=== PATIENT | female | born 1985 | race American Indian/Alaskan Native ===

== ENCOUNTER → 2021-05-05 12:04 | Outpatient (CLI) | payer OTHER, SELFPAY ==
[2021-05-05 13:46] LABS: Add Manual Diff / Slide Review NO; Basophils Absolute Auto 0 /uL (0-100); Basophils Percent Auto 0.4 % (0-2); Eosinophils Absolute Auto 0 /uL (0-450); Eosinophils Percent Auto 0.3 % (2-4); Hematocrit 42.5 % (36-46); Hemoglobin 14.4 g/dL (12.0-16.0); Lymphocytes Absolute Auto 2000 /uL (1100-4500); Lymphocytes Percent Auto 22.3 % (25-40); Mean Corpuscular HGB Conc 33.9 % (30-36); Mean Corpuscular Hemoglobin 26.6 PG (26-34); Mean Corpuscular Volume 78.5 fL (80-100); Monocytes Absolute Auto 400 /uL (0-900); Neutrophils Absolute Auto 6600 /uL (1500-7000); Platelet Count 351 X10^3/uL (150-400); Red Blood Cell Count 5.41 X10^6/uL (4.0-5.2); Red Cell Distribution Width 13.4 % (11.6-14.8); White Blood Cell Count 9.1 X10^3/uL (4.5-11.0)
[2021-05-05 13:58] LABS: Alanine Aminotransferase 13 IU/L (<35); Albumin 4.7 g/dL (3.5-5.0); Albumin Globulin Ratio 1.5 (1.0-2.8); Alkaline Phosphatase 84 U/L (38-126); Aspartate Aminotransferase 18 IU/L (14-36); BUN Creatinine Ratio 12.5 (6-22); Bilirubin Total 1.2 mg/dL (0.2-1.3); Blood Urea Nitrogen 10 mg/dL (7-17); Calcium 9.8 mg/dL (8.4-10.2); Carbon Dioxide 30 mmol/L (22-32); Chloride 102 mmol/L (98-107); Cholesterol 188 mg/dL (140-199); Estimated Glomerular Filt Rate > 60.0 mL/min (>60); Globulin 3.2 g/dL (1.7-4.1); Glucose 99 mg/dL (70-100); HDL Cholesterol 51 mg/dL (40-60); HEMOLYSIS < 15 (0-50); LDL Cholesterol Calculated 113 mg/dL (<100); Lipase 37 U/L (23-300); Potassium 4.6 mmol/L (3.4-5.1); Sodium 138 mmol/L (137-145); Total Protein 7.9 g/dL (6.3-8.2); Triglycerides 120 mg/dL (35-150)
[2021-05-05 14:28] LABS: Thyroid Stimulating Hormone 1.33 uIU/mL (0.47-4.68)
== END ==
PROVIDERS: Family Provider Physician Assistant; PCP Physician Assistant; Referring Provider Family Medicine; Visit Provider Family Medicine
DX: R07.9 Chest pain, unspecified (principal); E78.5 Hyperlipidemia, unspecified
CPT/HCPCS: 36415; 80053; 80061; 83690; 84443; 85025

== ENCOUNTER 2021-09-15 19:24 | Emergency (ER) | payer OTHER, SELFPAY ==
[2021-09-15 19:35] VITALS: BP 146/84; PULSE 102; RESP 16; TEMP 37.8; O2SAT 95; BMI 38.2
--- NOTE | 2021-09-15 19:54 | ED.ABDPAIN ---
HPI - Abdominal Pain General Chief Complaint: Abdominal Pain Stated Complaint: Really sharp pain in the stomach feels hot Time Seen by Provider: 09/15/21 19:54 Mode of arrival: Ambulatory History of Present Illness HPI narrative: 36-year-old female nonsmoker with noncontributory medical history presents with a chief complaint of gradually worsening central, lower abdominal pain over the past 24 hours or so. She has had fever and chills and nausea but no vomiting. Her pain seems to be worse with motion and improves with rest. She denies any radiation of the pain. She denies any diarrhea or constipation. She denies classic dysuria, frequency or urgency. Related Data Home Medications Medication Instructions Recorded Confirmed ALBUTEROL SULFATE (Ventolin / 2 puff INH Q4H PRN #0 02/06/07 Proventil) TRIAMCINOLONE NASAL INHALER 2 puff INH #0 02/06/07 (NASACORT) famotidine 20 mg tablet #0 12/29/11 hydrocodone 5 mg-acetaminophen 300 #0 12/29/11 mg tablet (Vicodin) lorazepam 0.5 mg tablet #0 12/29/11 Previous Rx's Medication Instructions Recorded cephalexin 500 mg capsule 500 mg PO BID #10 cap 09/15/21 ketorolac 10 mg tablet 10 mg PO Q6H PRN #14 tab 09/15/21 ondansetron 4 mg disintegrating 4 mg PO TID-QID PRN #10 tab 09/15/21 tablet Allergies Allergy/AdvReac Type Severity Reaction Status Date / Time lidocaine [LIDOCAINE] Allergy Mild Verified 09/15/21 21:24 Review of Systems Review of Systems Narrative: GENERAL: See HPI HEENT: Denies sinus pain, ear pain, sore throat, difficulty swallowing, dizziness. RESPIRATORY: Denies dyspnea, cough, wheezing, hemoptysis, sputum. CARDIOVASCULAR: Denies chest pain, palpitations, orthopnea, edema, GASTROINTESTINAL: See HPI : See HPI MUSCULOSKELETAL: denies weakness, joint pain, or bony pain SKIN: Denies rash, skin lesions, or other NEUROLOGIC: Denies weakness, headache, numbness, change in speech, confusion, seizures, incoordination. PSYCHIATRIC: No concerning psychosocial issues. 12 point review of systems is negative except for those stated above Patient History Social History Smoking Status: Never smoker Smoking Status: Never smoker alcohol intake frequency: 0-2 drinks per day Substance Use Type: does not use Exam Narrative Exam Narrative: GENERAL: [28 year old patient appears stated age. Well-developed patient, in mild distress. HEAD: Atraumatic. Normocephalic. EYES: Pupils equal round and reactive. Extraocular motions intact. No scleral icterus. No injection or drainage. ENT: Nose without bleeding, purulent drainage. Throat without erythema, tonsillar hypertrophy or exudate. Airway patent. NECK: Trachea midline. Non tender CARDIOVASCULAR: Regular rate and rhythm without murmurs, gallops, or rubs. RESPIRATORY: Clear to auscultation. Breath sounds equal bilaterally. No wheezes, rales, or rhonchi. GASTROINTESTINAL: Abdomen soft, mild periumbilical and suprapubic tenderness nondistended. EXTREMITIES: No edema or joint tenderness. BACK: Nontender without deformity or crepitance. No flank tenderness. NEURO: AOx3. SKIN: No rash or erythema of visible areas Initial Vital Signs Initial Vital Signs: Vital Signs Temperature 100.1 F H 09/15/21 19:35 Pulse Rate 102 H 09/15/21 19:35 Respiratory Rate 16 09/15/21 19:35 Blood Pressure 146/84 H 09/15/21 19:35 Pulse Oximetry 95 09/15/21 19:35 Course Orders Ordered: ED Orders 09/15/21 19:44 EKG-12 Lead Stat 09/15/21 19:50 Complete Blood Count AUTO DIFF Stat Comprehensive Metabolic Panel Stat Lipase Stat Urine Culture Stat Urine Microscopic Stat 09/15/21 19:52 COVID19 -Nasal RAPID/Pre-Proc Stat 09/15/21 19:58 CT abdomen pelvis w con Stat Discontinued Medications Hydrocodone Bitart/Acetaminophen (Hydrocodone/Acet 5/325 Prepack) 1 bottle MISC SEEINSTR ONE Stop: 09/15/21 21:16 Last Admin: 09/15/21 21:39 Dose: 1 bottle Documented by: JOE Cefazolin Sodium (Cephalexin 250 Mg Prepack) 1 bottle MISC SEEINSTR ONE Stop: 09/15/21 21:16 Last Admin: 09/15/21 21:38 Dose: 500 mg Documented by: JOE Sodium Chloride (Normal Saline 0.9%) 1,000 mls @ 1,000 mls/hr IV BOLUS ONE Stop: 09/15/21 20:57 Last Infusion: 09/15/21 21:40 Dose: 0 mls/hr Documented by: Admin: 09/15/21 20:23 Dose: 1,000 mls/hr Documented by: JOE Ondansetron HCl (Ondansetron 4 Mg Odt Prepack) 1 bottle MISC SEEINSTR ONE Stop: 09/15/21 21:16 Last Admin: 09/15/21 21:39 Dose: 1 bottle Documented by: JOE Vital Signs Vital signs: Vital Signs - 8 hr 09/15/21 20:34 09/15/21 21:00 09/15/21 21:30 Pulse Rate 86 85 78 Respiratory Rate 20 Blood Pressure Pulse Oximetry 93 92 93 09/15/21 21:35 Pulse Rate 79 Respiratory Rate Blood Pressure 137/82 Pulse Oximetry 93 MDM - Abdominal Pain Lab Data Result diagrams: 09/15/21 19:50 09/15/21 19:50 Labs: Lab Results 09/15/21 09/15/21 09/15/21 Range/Units 19:50 19:50 19:50 WBC 9.4 (4.5-11.0) X10^3/uL RBC 5.05 (4.0-5.2) X10^6/uL Hgb 13.4 (12.0-16.0) g/dL Hct 40.1 (36-46) % MCV 79.5 L (80-100) fL MCH 26.6 (26-34) PG MCHC 33.4 (30-36) % RDW 13.7 (11.6-14.8) % Plt Count 294 (150-400) X10^3/uL Neut % (Auto) 81.7 H (50-75) % Lymph % (Auto) 12.2 L (25-40) % [place] % (Auto) 5.4 (3-14) % Eos % (Auto) 0.3 L (2-4) % Baso % (Auto) 0.4 (0-2) % Neut # (Auto) 7700 H (8766-2452) /uL Lymph # (Auto) 1100 (2593-4644) /uL [place] # (Auto) 500 (0-900) /uL Eos # (Auto) 0 (0-450) /uL Baso # (Auto) 0 (0-100) /uL Sodium 137 (137-145) mmol/L Potassium 3.9 (3.4-5.1) mmol/L Chloride 103 (98-107) mmol/L Carbon Dioxide 25 (22-32) mmol/L BUN 12 (7-17) mg/dL Creatinine 0.75 (0.52-1.04) mg/dL Estimated GFR > 60 (>60) mL/min BUN/Creatinine Ratio 16.0 (6-22) Glucose 103 H (70-100) mg/dL Calcium 8.4 (8.4-10.2) mg/dL Total Bilirubin 0.8 (0.2-1.3) mg/dL AST 24 (14-36) IU/L ALT 23 (<35) IU/L Alkaline Phosphatase 81 (38-126) U/L Total Protein 7.9 (6.3-8.2) g/dL Albumin 4.4 (3.5-5.0) g/dL Globulin 3.5 (1.7-4.1) g/dL Albumin/Globulin Ratio 1.3 (1.0-2.8) Lipase 42 (23-300) U/L Urine RBC 5-10/hpf H (0-5/HPF) Urine WBC 10-30/hpf H (0-5/HPF) Ur Squamous Epith Cells 10-30 /hpf H (0-5/HPF) Urine Bacteria Few (2-10) H (None) Ur Culture Indicated? Culture not indicate SARS-CoV-2 (PCR) (Negative) 09/15/21 Range/Units 19:52 WBC (4.5-11.0) X10^3/uL RBC (4.0-5.2) X10^6/uL Hgb (12.0-16.0) g/dL Hct (36-46) % MCV (80-100) fL MCH (26-34) PG MCHC (30-36) % RDW (11.6-14.8) % Plt Count (150-400) X10^3/uL Neut % (Auto) (50-75) % Lymph % (Auto) (25-40) % [place] % (Auto) (3-14) % Eos % (Auto) (2-4) % Baso % (Auto) (0-2) % Neut # (Auto) (3447-7553) /uL Lymph # (Auto) (1696-1017) /uL [place] # (Auto) (0-900) /uL Eos # (Auto) (0-450) /uL Baso # (Auto) (0-100) /uL Sodium (137-145) mmol/L Potassium (3.4-5.1) mmol/L Chloride (98-107) mmol/L Carbon Dioxide (22-32) mmol/L BUN (7-17) mg/dL Creatinine (0.52-1.04) mg/dL Estimated GFR (>60) mL/min BUN/Creatinine Ratio (6-22) Glucose (70-100) mg/dL Calcium (8.4-10.2) mg/dL Total Bilirubin (0.2-1.3) mg/dL AST (14-36) IU/L ALT (<35) IU/L Alkaline Phosphatase (38-126) U/L Total Protein (6.3-8.2) g/dL Albumin (3.5-5.0) g/dL Globulin (1.7-4.1) g/dL Albumin/Globulin Ratio (1.0-2.8) Lipase (23-300) U/L Urine RBC (0-5/HPF) Urine WBC (0-5/HPF) Ur Squamous Epith Cells (0-5/HPF) Urine Bacteria (None) Ur Culture Indicated? SARS-CoV-2 (PCR) Negative (Negative) Point of care testing: Point of Care Testing Test Results Negative Urine Dip Bedside Urine Glucose Negative Bedside Urine Bilirubin - Negative Bedside Urine Ketone - Negative Urine Specific [place] 1.025 Bedside Urine Occult Blood - Negative Bedside Urine pH 6.0 Bedside Urine Protein - Negative Bedside Urine Urobilinogen - Negative Bedside Urine Nitrite - Negative Bedside Urine Leukocytes + [address] scan - abdomen/pelvis: Radiologist's Impression: Close Abdomen/Pelvis CT (Signed) Barrington Gutierrez - 09/15/21 Launch?[address] [address] [address] Scan Report Signed Patient: Daria Mendosa MR#: [id number] : 1985 Acct:[id number] Age/Sex: 36 / F Date of Service: 09/15/21 Loc: ED Accession Number: [id number] ?? Procedure: CT abdomen pelvis w con Ordering Provider: Luke Gill D.O. PROCEDURE:? CT ABDOMEN PELVIS W CON ? INDICATIONS:? severe mid abdomen pain, N/V/D, fever ? TECHNIQUE:? After the administration of IV contrast, axial sections were acquired from the lung bases to the pubic symphysis.? Coronal and sagittal reformats were performed.? For radiation dose reduction, the following was used:? automated exposure control, adjustment of mA and/or kV according to patient size. ? COMPARISON:? [facility], CT, ABDOMEN/PELVIS WITH CONTRAST, 12/29/2011, 22:42. ? FINDINGS:? Image quality:? Excellent.? ? Lung bases:? Unremarkable.? ? Heart:? Heart is normal in size. ? ? ABDOMEN: Liver:? No mass lesion. Gallbladder:? Surgically absent.? Biliary ducts:? No biliary ductal dilatation.? ? Pancreas:? No evidence of acute pancreatitis.? ? Spleen:? Normal in size.? ? Adrenal Glands:? No adrenal nodules.? ? Kidneys and Ureters:? No hydronephrosis.? A focus of cortical thinning is redemonstrated in the right kidney. ? ? Stomach and Bowel:? Stomach, small bowel loops, and colon are normal in caliber and wall thickness.? No pericecal inflammatory changes to suggest appendicitis.? There is colonic diverticulosis without acute diverticulitis. Peritoneum:? There is a small amount of intraperitoneal free fluid in the pelvis which appears within physiologic limits.? No free air.? ? Ventral Wall: ? No hernia.? Abdominal Nodes:? No retroperitoneal or mesenteric adenopathy by size criteria.? Vessels:? Aorta and inferior vena cava are normal in size.? ? PELVIS: Pelvic Organs:? An IUD appears in appropriate position within the uterus.? ? Bladder:? Unremarkable.? ? Pelvic Nodes: No enlarged lymph nodes.? Miscellaneous: No inguinal hernias are seen. ? ? ? Bones:? Visualized osseous structures demonstrate no suspicious focal lesions. ? IMPRESSION:? ? 1. No definite acute intra-abdominal abnormality. ? 2. Colonic diverticulosis without acute diverticulitis. ? 3. Small amount of free fluid in the pelvis appears within physiologic limits.? ? Dictated by: Barrington Gutierrez M.D. on 09/15/2021 at 20:56 ? ? MDM Narrative Medical decision making narrative: Multiple etiologies for patient's symptoms considered include, but not limited to: [Bowel obstruction versus appendicitis versus UTI versus other Patient's symptoms improved over duration of stay with above-stated therapies. History, physical exam, labs, imaging, and response to therapies have been reassuring. Findings and discharge diagnosis discussed with patient/family followed by verbalization of understanding Return precautions discussed with patient/family whom verbalize understanding. Pain has been well controlled and patient is tolerating oral hydration. Discharge Plan Departure Patient Disposition: Home Clinical Impression: Abdominal pain UTI (urinary tract infection) Qualifiers: Urinary tract infection type: acute cystitis Hematuria presence: with hematuria Qualified Code(s): N30.01 - Acute cystitis with hematuria Instructions: DI for Urinary Tract Infection (UTI) Activity Restrictions/Additional Instructions: *You have been diagnosed with [abdominal pain, most likely due to urine infection. As we discussed your history and physical exam are reassuring and labs are unremarkable. Your CT scan shows no sign of bowel obstruction, kidney stone, appendicitis or other diagnosis that would require a an immediate or surgical intervention *What to do: *Please continue to take your regular medications as directed. [ x] New medication prescriptions sent to your pharmacy: [[facility] ] [ ] New medication written as a paper prescription [ ] No new medications given *Please follow up with your primary care provider in 2-3 days, call for an appointment. Let them know you were seen in the Emergency Department and that we ask that you be seen in follow up. We will electronically transmit a record of today's note if your PCP is in our system *If you do not have a primary care provider please contact the [facility] Resource line at [phone]. They will ask some questions about your medical history and help get you set up with a doctor in the community. *Return to Emergency Department if you should have any new, worsening or concerning symptoms, such as [fever greater than 101 F, shaking chills, worsening pain, persistent vomiting or other bothersome symptoms] Prescriptions: New ketorolac 10 mg tablet 10 mg PO Q6H PRN (Reason: pain) Qty: 14 0RF cephalexin 500 mg capsule 500 mg PO BID Qty: 10 0RF ondansetron 4 mg tablet,disintegrating 4 mg PO TID-QID PRN (Reason: nausea and vomiting) Qty: 10 0RF No Action ALBUTEROL SULFATE (Ventolin / Proventil) 2 puff INH Q4H PRN Qty: 0 0RF TRIAMCINOLONE NASAL INHALER (NASACORT) 2 puff INH Qty: 0 0RF lorazepam 0.5 MG tablet Qty: 0 0RF hydrocodone-acetaminophen [Vicodin] 5 MG/300 MG tablet Qty: 0 0RF famotidine 20 MG tablet Qty: 0 0RF Referrals: Adrienne Yap PA-C [Primary Care Provider] - Visit Report Forms: Patient Portal/API
--- NOTE | 2021-09-15 19:58 | DI.CT.S_ITS ---
PROCEDURE: CT ABDOMEN PELVIS W CON INDICATIONS: severe mid abdomen pain, N/V/D, fever TECHNIQUE: After the administration of IV contrast, axial sections were acquired from the lung bases to the pubic symphysis. Coronal and sagittal reformats were performed. For radiation dose reduction, the following was used: automated exposure control, adjustment of mA and/or kV according to patient size. COMPARISON: [facility], CT, ABDOMEN/PELVIS WITH CONTRAST, 12/29/2011, 22:42. FINDINGS: Image quality: Excellent. Lung bases: Unremarkable. Heart: Heart is normal in size. ABDOMEN: Liver: No mass lesion. Gallbladder: Surgically absent. Biliary ducts: No biliary ductal dilatation. Pancreas: No evidence of acute pancreatitis. Spleen: Normal in size. Adrenal Glands: No adrenal nodules. Kidneys and Ureters: No hydronephrosis. A focus of cortical thinning is redemonstrated in the right kidney. Stomach and Bowel: Stomach, small bowel loops, and colon are normal in caliber and wall thickness. No pericecal inflammatory changes to suggest appendicitis. There is colonic diverticulosis without acute diverticulitis. Peritoneum: There is a small amount of intraperitoneal free fluid in the pelvis which appears within physiologic limits. No free air. Ventral Wall: No hernia. Abdominal Nodes: No retroperitoneal or mesenteric adenopathy by size criteria. Vessels: Aorta and inferior vena cava are normal in size. PELVIS: Pelvic Organs: An IUD appears in appropriate position within the uterus. Bladder: Unremarkable. Pelvic Nodes: No enlarged lymph nodes. Miscellaneous: No inguinal hernias are seen. Bones: Visualized osseous structures demonstrate no suspicious focal lesions. IMPRESSION: 1. No definite acute intra-abdominal abnormality. 2. Colonic diverticulosis without acute diverticulitis. 3. Small amount of free fluid in the pelvis appears within physiologic limits. Dictated by: Barrington Gutierrez M.D. on 09/15/2021 at 20:56 Approved by: Barrington Gutierrez M.D. on 09/15/2021 at 21:00
[2021-09-15 20:06] LABS: Add Manual Diff / Slide Review NO; Basophils Absolute Auto 0 /uL (0-100); Basophils Percent Auto 0.4 % (0-2); Eosinophils Absolute Auto 0 /uL (0-450); Eosinophils Percent Auto 0.3 % (2-4); Hematocrit 40.1 % (36-46); Hemoglobin 13.4 g/dL (12.0-16.0); Lymphocytes Absolute Auto 1100 /uL (1100-4500); Lymphocytes Percent Auto 12.2 % (25-40); Mean Corpuscular HGB Conc 33.4 % (30-36); Mean Corpuscular Hemoglobin 26.6 PG (26-34); Mean Corpuscular Volume 79.5 fL (80-100); Monocytes Absolute Auto 500 /uL (0-900); Monocytes Percent Auto 5.4 % (3-14); Neutrophils Absolute Auto 7700 /uL (1500-7000); Neutrophils Percent Auto 81.7 % (50-75); Platelet Count 294 X10^3/uL (150-400); Red Blood Cell Count 5.05 X10^6/uL (4.0-5.2); Red Cell Distribution Width 13.7 % (11.6-14.8); White Blood Cell Count 9.4 X10^3/uL (4.5-11.0)
[2021-09-15 20:19] LABS: COVID19 -Nasal RAPID Negative (Negative)
[2021-09-15] MEDS: SODIUM CHLORIDE 0.9% 1,000 ML 1000 ML IV (20:23)
[2021-09-15 20:34] VITALS: PULSE 86; O2SAT 93
[2021-09-15 20:36] LABS: Alanine Aminotransferase 23 IU/L (<35); Albumin 4.4 g/dL (3.5-5.0); Albumin Globulin Ratio 1.3 (1.0-2.8); Alkaline Phosphatase 81 U/L (38-126); Aspartate Aminotransferase 24 IU/L (14-36); Bilirubin Total 0.8 mg/dL (0.2-1.3); Blood Urea Nitrogen 12 mg/dL (7-17); Calcium 8.4 mg/dL (8.4-10.2); Carbon Dioxide 25 mmol/L (22-32); Chloride 103 mmol/L (98-107); Estimated Glomerular Filt Rate > 60 mL/min (>60); Globulin 3.5 g/dL (1.7-4.1); Glucose 103 mg/dL (70-100); HEMOLYSIS < 15 (0-50); Lipase 42 U/L (23-300); Potassium 3.9 mmol/L (3.4-5.1); Sodium 137 mmol/L (137-145); Total Protein 7.9 g/dL (6.3-8.2)
[2021-09-15 20:44] LABS: Bacteria Urine Few (2-10); RBC Urine 5-10/HPF (0-5/HPF); Squamous Epithelial Cell Urine 10-30 /HPF (0-5/HPF); WBC Urine 10-30/HPF (0-5/HPF)
[2021-09-15 21:00] VITALS: PULSE 85; RESP 20; O2SAT 92
[2021-09-15 21:30] VITALS: PULSE 78; O2SAT 93
[2021-09-15 21:35] VITALS: BP 137/82; PULSE 79; O2SAT 93
[2021-09-15] MEDS: cephALEXin 250 MG PREPACK 1 BOTTLE MISC (21:38)
[2021-09-15] MEDS: ONDANSETRON 4 MG ODT PREPACK 1 BOTTLE MISC (21:39)
[2021-09-15] MEDS: HYDROCODONE/ACET 5/325 PREPACK 1 BOTTLE MISC (21:39)
== END 2021-09-15 21:46 | disposition home or self-care (01) ==
PROVIDERS: Emergency Provider Emergency Medicine; Family Provider Physician Assistant; PCP Physician Assistant
DX: N30.01 Acute cystitis with hematuria (principal); R10.30 Lower abdominal pain, unspecified; Z20.822 Contact with and (suspected) exposure to COVID-19
CPT/HCPCS: 74177; 80053; 81003; 81015; 81025; 83690; 85025; 87086; 87635; 99284; C9803; Q9967

== ENCOUNTER 2021-09-17 19:34 | Emergency (ER) | payer OTHER, SELFPAY ==
[2021-09-17] VITALS (12 sets, daily range): BP systolic 130–157; BP diastolic 76–97; PULSE 56–81; RESP 14–27; TEMP 36.4; O2SAT 98–100
--- NOTE | 2021-09-17 20:26 | ED.CHESTPAIN ---
HPI - Chest Pain General Chief Complaint: Chest Pain Stated Complaint: CHEST PAIN LEFT SIDE ARM NUMBNESS AND LIPS Time Seen by Provider: 09/17/21 20:14 Source: patient Mode of arrival: Ambulatory History of Present Illness HPI narrative: 36-year-old female nonsmoker with noncontributory medical history presents with a chief complaint of a relatively sudden onset left lateral neck, anterior and posterior shoulder pain that started while at rest when she was sitting in bed 1-2 hours prior to her arrival. She denies chest pain or shortness of breath. She denies any obvious provocation, palliation of her symptoms. She states that she had some tingling down her left arm and sharp pain on the backside of her left elbow which is not necessarily new for her but perhaps in a different location. She states she is quite nervous about her symptoms, she has had pain in her neck for many years and suffered an injury while cheerleading. She has a family member that is a doctor that told her she should probably be seen. She was here a few days ago a chief complaint of central and lower abdominal pain and had extensive workup including labs and a CT scan of her abdomen and pelvis which were largely unremarkable except urine suggesting infection. She has been taking medications as directed. She denies recent travel, history of blood clot or use of hormone therapy but does have an IUD Related Data Home Medications Medication Instructions Recorded Confirmed ALBUTEROL SULFATE (Ventolin / 2 puff INH Q4H PRN #0 02/06/07 Proventil) TRIAMCINOLONE NASAL INHALER 2 puff INH #0 02/06/07 (NASACORT) famotidine 20 mg tablet #0 12/29/11 hydrocodone 5 mg-acetaminophen 300 #0 12/29/11 mg tablet (Vicodin) lorazepam 0.5 mg tablet #0 12/29/11 Previous Rx's Medication Instructions Recorded cephalexin 500 mg capsule 500 mg PO BID #10 cap 09/15/21 ketorolac 10 mg tablet 10 mg PO Q6H PRN #14 tab 09/15/21 ondansetron 4 mg disintegrating 4 mg PO TID-QID PRN #10 tab 09/15/21 tablet pantoprazole 40 mg tablet,delayed 40 mg PO DAILY #30 tab 09/17/21 release (Protonix) Allergies Allergy/AdvReac Type Severity Reaction Status Date / Time lidocaine [LIDOCAINE] Allergy Mild Verified 09/15/21 21:24 Review of Systems Review of Systems Narrative: GENERAL: Denies chills, fatigue, malaise, fever, sweats. HEENT: Denies sinus pain, ear pain, sore throat, difficulty swallowing, dizziness. RESPIRATORY: Denies dyspnea, cough, wheezing, hemoptysis, sputum. CARDIOVASCULAR: See HPI GASTROINTESTINAL: Denies nausea, vomiting, abdominal pain, diarrhea, constipation, melena. : Denies dysuria, frequency, incontinence, hematuria, urinary retention. MUSCULOSKELETAL: See HPI SKIN: Denies rash, skin lesions, or other NEUROLOGIC: Denies weakness, headache, numbness, change in speech, confusion, seizures, incoordination. PSYCHIATRIC: No concerning psychosocial issues. 12 point review of systems is negative except for those stated above Patient History Social History Smoking Status: Never smoker Smoking Status: Never smoker alcohol intake frequency: 0-2 drinks per day Substance Use Type: does not use Exam Narrative Exam Narrative: GENERAL: 36[] year old patient appears stated age. Well-developed patient, in mild distress. HEAD: Atraumatic. Normocephalic. EYES: Pupils equal round and reactive. Extraocular motions intact. No scleral icterus. No injection or drainage. ENT: Nose without bleeding, purulent drainage. Throat without erythema, tonsillar hypertrophy or exudate. Airway patent. NECK: Trachea midline. Non tender, full range of motion, no change with axial load. Left upper extremity with no ongoing numbness or tingling, full strength is present, cap refill intact CARDIOVASCULAR: Regular rate and rhythm without murmurs, gallops, or rubs. RESPIRATORY: Clear to auscultation. Breath sounds equal bilaterally. No wheezes, rales, or rhonchi. GASTROINTESTINAL: Abdomen soft, non-tender, nondistended. EXTREMITIES: No edema or joint tenderness. BACK: Nontender without deformity or crepitance. No flank tenderness. NEURO: AOx3. SKIN: No rash or erythema of visible areas Initial Vital Signs Initial Vital Signs: Vital Signs Temperature 97.6 F 09/17/21 19:43 Pulse Rate 81 09/17/21 19:43 Respiratory Rate 22 09/17/21 19:43 Blood Pressure 135/92 H 09/17/21 19:43 Pulse Oximetry 99 06/08/22 19:43 Course Orders Ordered: ED Orders 09/17/21 20:00 Complete Blood Count AUTO DIFF Stat Comprehensive Metabolic Panel Stat D Dimer Stat Lipase Stat NT-proBNP (BNP-Adult 18+) Stat Procalcitonin Stat Troponin & CK Cardiac Panel Stat 09/17/21 20:33 XR chest 1V Stat EKG-12 Lead Stat 09/17/21 21:08 CT angio chest PE protocol Stat 09/17/21 22:45 Troponin & CK Cardiac Panel Stat Sodium Chloride (Normal Saline 0.9%) 1,000 mls @ 150 mls/hr IV CONT THOMAS Last Admin: 09/17/21 20:45 Dose: 150 mls/hr Documented by: KENTRELLHOLUPILLO Discontinued Medications Ketorolac Tromethamine (Ketorolac 30 Mg/Ml Vial) 15 mg IV NOW ONE Stop: 09/17/21 22:27 Last Admin: 09/17/21 22:36 Dose: 15 mg Documented by: OSBALDO Vital Signs Vital signs: Vital Signs - 8 hr 09/17/21 19:43 Temperature 97.6 F Pulse Rate 81 Respiratory Rate 22 Blood Pressure 135/92 H Pulse Oximetry 99 MDM - Chest Pain Lab Data Result diagrams: 09/17/21 20:00 09/17/21 20:00 Labs: Lab Results 09/17/21 09/17/21 09/17/21 Range/Units 20:00 20:00 20:00 WBC 9.0 (4.5-11.0) X10^3/uL RBC 5.26 H (4.0-5.2) X10^6/uL Hgb 14.2 (12.0-16.0) g/dL Hct 41.1 (36-46) % MCV 78.1 L (80-100) fL MCH 26.9 (26-34) PG MCHC 34.5 (30-36) % RDW 13.3 (11.6-14.8) % Plt Count 302 (150-400) X10^3/uL Neut % (Auto) 64.9 (50-75) % Lymph % (Auto) 26.1 (25-40) % [place] % (Auto) 7.2 (3-14) % Eos % (Auto) 1.4 L (2-4) % Baso % (Auto) 0.4 (0-2) % Neut # (Auto) 5900 (9395-9662) /uL Lymph # (Auto) 2400 (7412-7643) /uL [place] # (Auto) 600 (0-900) /uL Eos # (Auto) 100 (0-450) /uL Baso # (Auto) 0 (0-100) /uL D-Dimer 327 H (<230) ng/mL Sodium 139 (137-145) mmol/L Potassium 4.0 (3.4-5.1) mmol/L Chloride 103 (98-107) mmol/L Carbon Dioxide 29 (22-32) mmol/L BUN 11 (7-17) mg/dL Creatinine 0.84 (0.52-1.04) mg/dL Estimated GFR > 60 (>60) mL/min BUN/Creatinine Ratio 13.1 (6-22) Glucose 98 (70-100) mg/dL Calcium 9.3 (8.4-10.2) mg/dL Total Bilirubin 0.6 (0.2-1.3) mg/dL AST 28 (14-36) IU/L ALT 20 (<35) IU/L Alkaline Phosphatase 85 (38-126) U/L Total Creatine Kinase 62 (30-135) U/L CK-MB (CK-2) TNP CK-MB (CK-2) Rel Index TNP Troponin I < 0.012 (0.01-0.034) ng/mL NT-Pro-B Natriuret Pep 42 (<125) pg/mL Total Protein 8.2 (6.3-8.2) g/dL Albumin 4.6 (3.5-5.0) g/dL Globulin 3.6 (1.7-4.1) g/dL Albumin/Globulin Ratio 1.3 (1.0-2.8) Lipase 35 (23-300) U/L Procalcitonin 0.09 (<0.5) ng/mL 09/17/21 Range/Units 22:45 WBC (4.5-11.0) X10^3/uL RBC (4.0-5.2) X10^6/uL Hgb (12.0-16.0) g/dL Hct (36-46) % MCV (80-100) fL MCH (26-34) PG MCHC (30-36) % RDW (11.6-14.8) % Plt Count (150-400) X10^3/uL Neut % (Auto) (50-75) % Lymph % (Auto) (25-40) % [place] % (Auto) (3-14) % Eos % (Auto) (2-4) % Baso % (Auto) (0-2) % Neut # (Auto) (5977-7411) /uL Lymph # (Auto) (9482-8385) /uL [place] # (Auto) (0-900) /uL Eos # (Auto) (0-450) /uL Baso # (Auto) (0-100) /uL D-Dimer (<230) ng/mL Sodium (137-145) mmol/L Potassium (3.4-5.1) mmol/L Chloride (98-107) mmol/L Carbon Dioxide (22-32) mmol/L BUN (7-17) mg/dL Creatinine (0.52-1.04) mg/dL Estimated GFR (>60) mL/min BUN/Creatinine Ratio (6-22) Glucose (70-100) mg/dL Calcium (8.4-10.2) mg/dL Total Bilirubin (0.2-1.3) mg/dL AST (14-36) IU/L ALT (<35) IU/L Alkaline Phosphatase (38-126) U/L Total Creatine Kinase 57 (30-135) U/L CK-MB (CK-2) TNP CK-MB (CK-2) Rel Index TNP Troponin I < 0.012 (0.01-0.034) ng/mL NT-Pro-B Natriuret Pep (<125) pg/mL Total Protein (6.3-8.2) g/dL Albumin (3.5-5.0) g/dL Globulin (1.7-4.1) g/dL Albumin/Globulin Ratio (1.0-2.8) Lipase (23-300) U/L Procalcitonin (<0.5) ng/mL Imaging Data CT scan - chest: Radiologist's Impression: Launch?[address] [address] [address] Scan Report Signed Patient: Daria Mendosa MR#: [id number] : 1985 Acct:[id number] Age/Sex: 36 / F Date of Service: 09/17/21 Loc: ED Accession Number: [id number] ?? Procedure: CT angio chest PE protocol Ordering Provider: Luke Gill D.O. PROCEDURE:? CT ANGIO CHEST PE PROTOCOL ? INDICATIONS:? chest pain, radiation to back, elevated Dimer ? TECHNIQUE:? After the administration of intravenous contrast, 2 mm thick sections acquired from the pulmonary apices to the posterior costophrenic angles.? 3-dimensional maximum intensity projection (MIP) coronal and sagittal reformats were then acquired through the thorax.? For radiation dose reduction, the following was used:? automated exposure control, adjustment of mA and/or kV according to patient size.? ? COMPARISON:? [facility], CR, XR CHEST 1V, 09/17/2021, 20:39. ? FINDINGS:? Image quality:? Excellent.? ? Pulmonary arteries:? Pulmonary arteries are normal in size, and demonstrate no intraluminal filling defects to suggest central pulmonary embolism.? ? Lungs and pleura:? There is mild dependent atelectasis.? No pleural effusions or pneumothorax.? Central and peripheral airways are patent.? ? Mediastinum:? Heart size is normal, without pericardial effusion.? No mediastinal or hilar adenopathy.? Thoracic aorta is normal in caliber and enhancement.? Esophagus is normal in caliber, without hiatal hernia.? ? Bones and chest wall:? No suspicious bony lesions.? Ribs and thoracic spine appear intact throughout.? Visualized thyroid demonstrates no discrete nodules.? No axillary or supraclavicular adenopathy.? ? Abdomen:? Visualized upper abdominal solid organs appear normal in the early arterial phase of enhancement.? ? IMPRESSION:? ? 1. No evidence of pulmonary embolism. ? 2. No acute airspace consolidation.? ? ? Dictated by: Barrington Gutierrez M.D. on 09/17/2021 at 21:59 ?? MDM Narrative Medical decision making narrative: Multiple etiologies for patient's symptoms considered including: [Cardiac ischemia versus pulmonary embolism versus other Multiple causes of chest pain considered including MT, PE, pneumothorax, pneumonia, aortic dissection, and pleurisy. Patient reports no radiation, no diaphoresis, no provocation with exertion, and no vomiting Patient's symptoms improved over duration of stay with above-stated therapies. Findings and discharge diagnosis discussed with patient/family followed by verbalization of understanding Return precautions discussed with patient/family whom verbalize understanding. Discharge Plan Departure Patient Disposition: Home Clinical Impression: Atypical chest pain, Gastroesophageal reflux disease Instructions: DI for Atypical Chest Pain Activity Restrictions/Additional Instructions: *You have been diagnosed with [left chest and shoulder pain without evidence of cardiac disease. As we discussed your history and physical exam as well as labs and imaging would suggest against the likelihood heart attack, blood clot *What to do: *Please continue to take your regular medications as directed. [x ] New medication prescriptions sent to your pharmacy: [[facility] ] *Please follow up with your primary care provider tomorrow as planned. *Please consider a clear liquid diet for the next 24-48 hours and then slowly advance to regular as tolerated. Also, try to avoid alcohol, nicotine, caffeine, spicy, acidic or fatty foods as this may worsen your symptoms *If you do not have a primary care provider please contact the [facility] Resource line at [phone]. They will ask some questions about your medical history and help get you set up with a doctor in the community. *Return to Emergency Department if you should have any new, worsening or concerning symptoms, such as [fever greater than 101 F, shaking chills, worsening pain, persistent vomiting or other bothersome symptoms] Prescriptions: New pantoprazole [Protonix] 40 mg tablet,delayed release (DR/EC) 40 mg PO DAILY Qty: 30 0RF No Action ALBUTEROL SULFATE (Ventolin / Proventil) 2 puff INH Q4H PRN Qty: 0 0RF TRIAMCINOLONE NASAL INHALER (NASACORT) 2 puff INH Qty: 0 0RF lorazepam 0.5 MG tablet Qty: 0 0RF hydrocodone-acetaminophen [Vicodin] 5 MG/300 MG tablet Qty: 0 0RF famotidine 20 MG tablet Qty: 0 0RF ketorolac 10 mg tablet 10 mg PO Q6H PRN (Reason: pain) Qty: 14 0RF cephalexin 500 mg capsule 500 mg PO BID Qty: 10 0RF ondansetron 4 mg tablet,disintegrating 4 mg PO TID-QID PRN (Reason: nausea and vomiting) Qty: 10 0RF Referrals: Adrienne Yap PA-C [Primary Care Provider] -
--- NOTE | 2021-09-17 20:33 | DI.RAD.S_ITS ---
PROCEDURE: XR CHEST 1V INDICATIONS: chest pain TECHNIQUE: One view of the chest was acquired. COMPARISON: [facility], , CHEST 1 VIEW, 10/15/2011, 16:45. FINDINGS: Surgical changes and devices: None. Lungs and pleura: Lungs are clear. No pleural effusions or pneumothorax. Mediastinum: Mediastinal contours appear normal. Heart size is normal. Bones and chest wall: No suspicious bony lesions. Overlying soft tissues appear unremarkable. IMPRESSION: 1. No acute cardiopulmonary disease. Dictated by: Barrington Gutierrez M.D. on 09/17/2021 at 21:25 Approved by: Barrington Gutierrez M.D. on 09/17/2021 at 21:26
[2021-09-17] MEDS: SODIUM CHLORIDE 0.9% 1,000 ML 150 ML IV (20:45)
[2021-09-17 21:00] LABS: Add Manual Diff / Slide Review NO; Basophils Absolute Auto 0 /uL (0-100); Basophils Percent Auto 0.4 % (0-2); Eosinophils Absolute Auto 100 /uL (0-450); Eosinophils Percent Auto 1.4 % (2-4); Hematocrit 41.1 % (36-46); Hemoglobin 14.2 g/dL (12.0-16.0); Lymphocytes Absolute Auto 2400 /uL (1100-4500); Lymphocytes Percent Auto 26.1 % (25-40); Mean Corpuscular HGB Conc 34.5 % (30-36); Mean Corpuscular Hemoglobin 26.9 PG (26-34); Mean Corpuscular Volume 78.1 fL (80-100); Monocytes Absolute Auto 600 /uL (0-900); Monocytes Percent Auto 7.2 % (3-14); Neutrophils Absolute Auto 5900 /uL (1500-7000); Neutrophils Percent Auto 64.9 % (50-75); Platelet Count 302 X10^3/uL (150-400); Red Blood Cell Count 5.26 X10^6/uL (4.0-5.2); Red Cell Distribution Width 13.3 % (11.6-14.8)
[2021-09-17 21:03] LABS: D Dimer 327 ng/mL (<230)
--- NOTE | 2021-09-17 21:08 | DI.CT.S_ITS ---
PROCEDURE: CT ANGIO CHEST PE PROTOCOL INDICATIONS: chest pain, radiation to back, elevated Dimer TECHNIQUE: After the administration of intravenous contrast, 2 mm thick sections acquired from the pulmonary apices to the posterior costophrenic angles. 3-dimensional maximum intensity projection (MIP) coronal and sagittal reformats were then acquired through the thorax. For radiation dose reduction, the following was used: automated exposure control, adjustment of mA and/or kV according to patient size. COMPARISON: [facility], CR, XR CHEST 1V, 09/17/2021, 20:39. FINDINGS: Image quality: Excellent. Pulmonary arteries: Pulmonary arteries are normal in size, and demonstrate no intraluminal filling defects to suggest central pulmonary embolism. Lungs and pleura: There is mild dependent atelectasis. No pleural effusions or pneumothorax. Central and peripheral airways are patent. Mediastinum: Heart size is normal, without pericardial effusion. No mediastinal or hilar adenopathy. Thoracic aorta is normal in caliber and enhancement. Esophagus is normal in caliber, without hiatal hernia. Bones and chest wall: No suspicious bony lesions. Ribs and thoracic spine appear intact throughout. Visualized thyroid demonstrates no discrete nodules. No axillary or supraclavicular adenopathy. Abdomen: Visualized upper abdominal solid organs appear normal in the early arterial phase of enhancement. IMPRESSION: 1. No evidence of pulmonary embolism. 2. No acute airspace consolidation. Dictated by: Barrington Gutierrez M.D. on 09/17/2021 at 21:59 Approved by: Barrington Gutierrez M.D. on 09/17/2021 at 22:05
[2021-09-17 21:11] LABS: Alanine Aminotransferase 20 IU/L (<35); Albumin 4.6 g/dL (3.5-5.0); Albumin Globulin Ratio 1.3 (1.0-2.8); Alkaline Phosphatase 85 U/L (38-126); Aspartate Aminotransferase 28 IU/L (14-36); BUN Creatinine Ratio 13.1 (6-22); Bilirubin Total 0.6 mg/dL (0.2-1.3); Blood Urea Nitrogen 11 mg/dL (7-17); Calcium 9.3 mg/dL (8.4-10.2); Carbon Dioxide 29 mmol/L (22-32); Chloride 103 mmol/L (98-107); Creatine Kinase 62 U/L (30-135); Estimated Glomerular Filt Rate > 60 mL/min (>60); Globulin 3.6 g/dL (1.7-4.1); Glucose 98 mg/dL (70-100); HEMOLYSIS < 15 (0-50); Lipase 35 U/L (23-300); Sodium 139 mmol/L (137-145); Total Protein 8.2 g/dL (6.3-8.2)
[2021-09-17 21:24] LABS: NT-proBNP (BNP-Adult 18+) 42 pg/mL (<125); Troponin I < 0.012 ng/mL (0.01-0.034)
[2021-09-17 21:28] LABS: Procalcitonin 0.09 ng/mL (<0.5)
[2021-09-17] MEDS: KETOROLAC 30 MG/ML VIAL 15 MG IV (22:36)
[2021-09-17 23:01] LABS: Creatine Kinase 57 U/L (30-135)
[2021-09-17 23:14] LABS: Troponin I < 0.012 ng/mL (0.01-0.034)
== END 2021-09-17 23:49 | disposition home or self-care (01) ==
PROVIDERS: Emergency Provider Emergency Medicine; Family Provider Physician Assistant; PCP Physician Assistant
DX: R07.89 Other chest pain (principal); K21.9 Gastro-esophageal reflux disease without esophagitis
CPT/HCPCS: 36415; 71045; 71275; 80053; 82550; 82553; 83690; 83880; 84145; 84484; 85025; 85379; 93005; 93010; 96374; 99284; J1885; Q9967

== ENCOUNTER → 2021-09-27 09:53 | Outpatient (CLI) | payer OTHER, SELFPAY ==
[2021-09-29 13:38] LABS: Interpretation Negative (Negative)
== END ==
PROVIDERS: Family Provider Physician Assistant; PCP Physician Assistant; Referring Provider Physician Assistant; Visit Provider Physician Assistant
DX: R10.13 Epigastric pain (principal); K21.9 Gastro-esophageal reflux disease without esophagitis
CPT/HCPCS: 83013

== ENCOUNTER 2022-08-25 21:06 | Emergency (ER) | payer OTHER, SELFPAY ==
[2022-08-25 21:07] VITALS: BP 182/88; PULSE 72; RESP 16; TEMP 36.9; O2SAT 98; BMI 38.2
--- NOTE | 2022-08-25 21:17 | ED_ITS ---
HPI - General Adult General Chief complaint: Ear Stated complaint: L ear pain Time Seen by Provider: 08/25/22 21:17 Source: patient Mode of arrival: Ambulatory History of Present Illness HPI narrative: 37-year-old female nonsmoker with history of GERD and relatively recent diagnosis of left ear infection presents due to some increasing drainage and pain. She started having pain on Wednesday and went to in urgent care on Wednesday was diagnosed with otitis externa and placed on a prescription of ciprofloxacin with steroid drops as well as oral antibiotics. She is had some purulent drainage and pain anterior to her ear which has seemed to improve and wanted to be checked. She denies fever or chills. She is not dizzy nor weak or lightheaded. She denies chest pain or shortness of breath. She denies neck pain, throat pain, difficulty swallowing or difficulty breathing. Related Data Home Medications Medication Instructions Recorded Confirmed ALBUTEROL SULFATE (Ventolin / 2 puff INH Q4H PRN ##0 02/06/07 Proventil) TRIAMCINOLONE NASAL INHALER 2 puff INH ##0 02/06/07 (NASACORT) famotidine 20 mg tablet ##0 12/29/11 hydrocodone 5 mg-acetaminophen 300 ##0 12/29/11 mg tablet (Vicodin) lorazepam 0.5 mg tablet ##0 12/29/11 Previous Rx's Medication Instructions Recorded cephalexin 500 mg capsule 500 mg PO BID #10 caps 09/15/21 ketorolac 10 mg tablet 10 mg PO Q6H PRN pain #14 tabs 09/15/21 ondansetron 4 mg disintegrating 4 mg PO TID-QID PRN nausea and 09/15/21 tablet vomiting #10 tabs pantoprazole 40 mg tablet,delayed 40 mg PO DAILY #30 tabs 09/17/21 release (Protonix) ciprofloxacin HCl 500 mg tablet 500 mg PO BID #20 tabs 08/25/22 Allergies Allergy/AdvReac Type Severity Reaction Status Date / Time lidocaine [LIDOCAINE] Allergy Mild Verified 09/15/21 21:24 Review of Systems Review of Systems Narrative: GENERAL: Denies chills, fatigue, malaise, fever, sweats. HEENT: see HPI RESPIRATORY: Denies dyspnea, cough, wheezing, hemoptysis, sputum. CARDIOVASCULAR: Denies chest pain, palpitations, orthopnea, edema, GASTROINTESTINAL: Denies nausea, vomiting, abdominal pain, diarrhea, constipation, melena. : Denies dysuria, frequency, incontinence, hematuria, urinary retention. MUSCULOSKELETAL: denies weakness, joint pain, or bony pain SKIN: Denies rash, skin lesions, or other NEUROLOGIC: Denies weakness, headache, numbness, change in speech, confusion, seizures, incoordination. PSYCHIATRIC: No concerning psychosocial issues. 12 point review of systems is negative except for those stated above Patient History Social History Smoking Status: Never smoker Smoking Status: Never smoker alcohol intake frequency: a few times a month Substance Use Type: marijuana Exam Narrative Exam Narrative: GENERAL: [37] year old patient appears stated age. Well-developed patient, in mild distress. HEAD: Atraumatic. Normocephalic. EYES: Pupils equal round and reactive. Extraocular motions intact. No scleral icterus. No injection or drainage. ENT: Nose without bleeding, purulent drainage. Throat without erythema, tonsillar hypertrophy or exudate. Airway patent.Right tympanic membrane is flat, clear with normal landmarks, left external auditory canal is edematous with purulent drainage and debris, unable to visualize the tympanic membrane. There is some tenderness but very minimal swelling, possibly adenopathy in the preauricular region, minimal if any pain over mastoid air cells, no bogginess, surrounding erythema NECK: Trachea midline. Non tender CARDIOVASCULAR: Regular rate and rhythm without murmurs, gallops, or rubs. RESPIRATORY: Clear to auscultation. Breath sounds equal bilaterally. No wheezes, rales, or rhonchi. GASTROINTESTINAL: Abdomen soft, non-tender, nondistended. EXTREMITIES: No edema or joint tenderness. BACK: Nontender without deformity or crepitance. No flank tenderness. NEURO: AOx3. SKIN: No rash or erythema of visible areas Initial Vital Signs Initial Vital Signs: Vital Signs Temperature 98.4 F 08/25/22 21:07 Pulse Rate 72 08/25/22 21:07 Respiratory Rate 16 08/25/22 21:07 Blood Pressure 182/88 H 08/25/22 21:07 Pulse Oximetry 98 08/25/22 21:07 Oxygen Delivery Method Room Air 08/25/22 21:07 Course Orders Ordered: ED Orders 08/25/22 21:31 CT mastoid temporal Stat Discontinued Medications Ciprofloxacin (Ciprofloxacin 250 Mg Tablet) 500 mg PO NOW ONE Stop: 08/25/22 23:53 Last Admin: 08/25/22 23:59 Dose: 500 mg Documented By: Vital Signs Vital signs: Vital Signs - 8 hr 08/25/22 21:07 08/25/22 23:07 08/26/22 00:00 Temperature 98.4 F Pulse Rate 72 70 56 L Respiratory Rate 16 20 Blood Pressure 182/88 H Blood Pressure [Left Arm] 118/70 176/84 H Pulse Oximetry 98 100 99 Oxygen Delivery Method Room Air Room Air Room Air Medical Decision Making MDM Narrative Medical decision making narrative: [37] year old patient presents with left ear pain and drainage for 4 days Multiple etiologies for patient's symptoms considered including, but not limited to: [Otitis externa versus otitis media versus mastoiditis versus other] Prior Charts reviewed in our EMR Primary Historian: patient Imaging reviewed: Mastoiditis Patient encouraged to stop her current oral antibiotic and switch to Cipro. She shows no signs of sepsis, pain is well controlled, she is tolerating orals and at this time there is no indication for hospitalization. She is encouraged to follow closely with Ear Nose and Throat Findings and discharge diagnosis discussed with patient/family followed by verbalization of understanding Return precautions discussed with patient/family whom verbalize understanding of diagnosis and plan Discharge Plan Departure Patient Disposition: Home Clinical Impression: Otitis externa, Acute mastoiditis Instructions: DI for Otitis Externa, DI for Mastoiditis-Adult Activity Restrictions/Additional Instructions: *You have been diagnosed with [ Left otitis externa. As we discussed your history and physical exam is reassuring, CT scan showed no significant abnormal findings and the antibiotics that your on are appropriate.] *What to do: *Please continue to take your regular medications as directed. [x ] New medication prescriptions sent to your pharmacy: [[facility] ] [ ] New medication written as a paper prescription [ ] No new medications given *Please follow up with your primary care provider in 2-3 days, call for an appointment. Let them know you were seen in the Emergency Department and that we ask that you be seen in follow up. We will electronically transmit a record of today's note if your PCP is in our system As we discussed I have included contact information for Dr. Yung of [facility], please call the office tomorrow, let them know you were in the emergency department and we would like you seen in follow-up. *Return to Emergency Department if you should have any new, worsening or c oncerning symptoms, such as [fever greater than 101 F, shaking chills, worsening pain, persistent vomiting or other bothersome symptoms] Prescriptions: New ciprofloxacin HCl 500 mg tablet 500 mg PO BID Qty: 20 0RF No Action ALBUTEROL SULFATE (Ventolin / Proventil) 2 puff INH Q4H PRN Qty: 0 TRIAMCINOLONE NASAL INHALER (NASACORT) 2 puff INH Qty: 0 lorazepam 0.5 MG tablet Qty: 0 hydrocodone-acetaminophen [Vicodin] 5 MG/300 MG tablet Qty: 0 famotidine 20 MG tablet Qty: 0 pantoprazole [Protonix] 40 mg tablet,delayed release (DR/EC) 40 mg PO DAILY Qty: 30 0RF ketorolac 10 mg tablet 10 mg PO Q6H PRN (Reason: pain) Qty: 14 0RF cephalexin 500 mg capsule 500 mg PO BID Qty: 10 0RF ondansetron 4 mg tablet,disintegrating 4 mg PO TID-QID PRN (Reason: nausea and vomiting) Qty: 10 0RF Referrals: Manuel Yung MD [Physician] - Jesus Alberto Art PA-C [Primary Care Provider] - Stand Alone Forms: Patient Portal/API
--- NOTE | 2022-08-25 21:31 | DI.CT.S_ITS ---
PROCEDURE: CT MASTOID TEMPORAL INDICATIONS: severe L head/ear pain, worse over 4 days COMPARISON: None. TECHNIQUE: Noncontrast 0.6 mm thick axial sections acquired through each temporal bone separately. Coronal images are reformatted. FINDINGS: Image quality: Excellent. RIGHT: External auditory canal: Canal has a normal appearance. Middle ear: The middle ear structures, including the ossicles and tympanic membrane, appear normal. No abnormal fluid or soft tissue density. Inner ear: Inner ear is normally formed and appears unremarkable. Facial nerve appears normal throughout is course. Mastoids: Mastoid air cells are clear. LEFT: External auditory canal: There is extensive opacification of the external auditory canal with effacement of the tympanic membrane. Middle ear: There is diffuse abnormal hyperdense fluid or soft tissue density within the middle ear. The ossicles appear preserved without bony destruction or erosions. As noted above, the tympanic membrane is obscured by adjacent fluid or soft tissue density. Inner ear: Inner ear is normally formed and appears unremarkable. Facial nerve appears normal throughout its course. Mastoids: There is partial fluid opacification of the left mastoid air cells. MISCELLANEOUS: Visualized surrounding bones appear unremarkable. Visualized intracranial structures, including the cerebellopontine angle cisterns, appear normal. The visualized sinuses demonstrate mild mucosal thickening within the ethmoid, maxillary, and sphenoid sinuses. IMPRESSION: 1. Extensive complex fluid or soft tissue density demonstrated within the left external auditory canal and middle ear. No evidence of ossicular destruction or erosions. Findings are nonspecific but likely reflect sequelae of an infectious or inflammatory process. 2. Partial fluid opacification of the left mastoid air cells consistent with mastoiditis. Dictated by: Barrington Gutierrez M.D. on 08/25/2022 at 23:14 Approved by: Barrington Gutierrez M.D. on 08/25/2022 at 23:20
[2022-08-25 23:07] VITALS: BP 118/70; PULSE 70; RESP 20; O2SAT 100
[2022-08-25] MEDS: CIPROFLOXACIN 250 MG TABLET 500 MG PO (23:59)
[2022-08-26] VITALS: BP 176/84; PULSE 56; O2SAT 99
== END 2022-08-26 00:02 | disposition home or self-care (01) ==
PROVIDERS: Emergency Provider Emergency Medicine; Family Provider Physician Assistant; PCP Physician Assistant
DX: H60.92 Unspecified otitis externa, left ear (principal); H70.002 Acute mastoiditis without complications, left ear
CPT/HCPCS: 70480; 99283; 99284

== ENCOUNTER 2022-09-16 21:57 | Emergency (ER) | payer OTHER, SELFPAY ==
[2022-09-16 22:17] VITALS: BP 152/74; PULSE 64; RESP 18; TEMP 36.5; O2SAT 99; BMI 37.3
--- NOTE | 2022-09-16 22:33 | DI.RAD.S_ITS ---
PROCEDURE: XR CHEST 1V INDICATIONS: chest pain TECHNIQUE: One view of the chest was acquired. COMPARISON: [facility], CR, XR CHEST 1V, 09/17/2021, 20:39. FINDINGS: Surgical changes and devices: None. Lungs and pleura: Lungs are clear. No pleural effusions or pneumothorax. Mediastinum: Mediastinal contours appear normal. Heart size is normal. Bones and chest wall: No suspicious bony lesions. Overlying soft tissues appear unremarkable. IMPRESSION: 1. No acute cardiopulmonary disease. Dictated by: Barrington Gutierrez M.D. on 09/16/2022 at 23:58 Approved by: Barrington Gutierrez M.D. on 09/16/2022 at 23:58
[2022-09-16] MEDS: ASPIRIN 81 MG CHEW TAB 324 MG PO (22:51)
[2022-09-16 23:14] VITALS: PULSE 57; RESP 22; O2SAT 100
[2022-09-16 23:16] VITALS: BP 143/74; PULSE 63; RESP 23; O2SAT 100
[2022-09-16 23:28] LABS: Add Manual Diff / Slide Review NO; Basophils Absolute Auto 100 /uL (0-100); Basophils Percent Auto 0.7 % (0-2); Eosinophils Absolute Auto 100 /uL (0-450); Eosinophils Percent Auto 0.8 % (2-4); Hemoglobin 12.3 g/dL (12.0-16.0); Lymphocytes Absolute Auto 3000 /uL (1100-4500); Lymphocytes Percent Auto 27.9 % (25-40); Mean Corpuscular HGB Conc 34.1 % (30-36); Mean Corpuscular Hemoglobin 26.9 PG (26-34); Mean Corpuscular Volume 78.7 fL (80-100); Monocytes Absolute Auto 500 /uL (0-900); Neutrophils Absolute Auto 7000 /uL (1500-7000); Neutrophils Percent Auto 65.6 % (50-75); Platelet Count 311 X10^3/uL (150-400); Red Blood Cell Count 4.57 X10^6/uL (4.0-5.2); Red Cell Distribution Width 13.6 % (11.6-14.8); White Blood Cell Count 10.6 X10^3/uL (4.5-11.0)
[2022-09-16 23:30] VITALS: PULSE 53; RESP 20; O2SAT 99
[2022-09-16 23:31] VITALS: BP 137/63; PULSE 54; RESP 22; O2SAT 99
[2022-09-16 23:33] LABS: INR 1.1 (0.9-1.3); Prothrombin Time 12.8 SECONDS (10.1-12.7)
[2022-09-16 23:36] LABS: PTT Partial Thromboplastin Tim 37 SECONDS (26-36)
[2022-09-16 23:38] LABS: Alanine Aminotransferase 24 IU/L (<35); Albumin 4.2 g/dL (3.5-5.0); Albumin Globulin Ratio 1.4 (1.0-2.8); Alkaline Phosphatase 79 U/L (38-126); Aspartate Aminotransferase 22 IU/L (14-36); BUN Creatinine Ratio 13.3 (6-22); Blood Urea Nitrogen 10 mg/dL (7-17); Calcium 8.6 mg/dL (8.4-10.2); Carbon Dioxide 27 mmol/L (22-32); Chloride 102 mmol/L (98-107); Creatine Kinase 96 U/L (30-135); Estimated Glomerular Filt Rate > 60 mL/min (>60); Globulin 2.9 g/dL (1.7-4.1); Glucose 96 mg/dL (70-100); HEMOLYSIS < 15 (0-50); Lipase 38 U/L (23-300); Magnesium 2.1 mg/dL (1.6-2.3); Potassium 3.8 mmol/L (3.4-5.1); Sodium 137 mmol/L (137-145); Total Protein 7.1 g/dL (6.3-8.2)
[2022-09-16 23:49] LABS: Troponin I < 0.012 ng/mL (0.01-0.034)
[2022-09-17] VITALS (10 sets, daily range): BP systolic 147–156; BP diastolic 62–79; PULSE 51–67; RESP 16–34; O2SAT 96–100
--- NOTE | 2022-09-17 00:42 | ED_ITS ---
HPI - Chest Pain General Chief Complaint: Chest Pain Stated Complaint: chest, neck pains, swelling Time Seen by Provider: 09/17/22 00:42 Source: patient Mode of arrival: Ambulatory Limitations: no limitations History of Present Illness HPI narrative: This is a 37-year-old female with history of mild asthma, GERD, patient presents with complaint of left-sided chest pain in her shoulder next down her arm. Patient states she is had similar symptoms on and off in the past. She was here a year ago with similar symptoms. Patient states symptoms started last have been intermittent she was seen at [facility] on Wednesday had aspirin, nitro really had Toradol and Tylenol and was discharged home. She states she is had 5 episodes this year. This 1 has lasted a little bit longer than typical. She states usually it is 1 or 2 days and then resolves. She is felt more tired no fevers no chills no cold cough or congestion. She describes left-sided chest pain radiating down her arm neck she had some numbness and tingling sensation. Her hands both felt a little bit swollen. No shortness of breath. No cough. No change in location of her pain. Patient states her ear infection and mastoid area has been improving. Patient has not had any exacerbation or alleviating symptoms. Patient had ibuprofen at 5:00 p.m., she is had occasional nausea but no vomiting. No issues with diarrhea no black or bloody stools. No dysuria urgency or frequency. Patient states no prior cholecystectomy, no tonsillectomy. Patient states allergies to lidocaine medications. No tobacco, alcohol, edibles but no other illicit. Family history dad at age 42 from [place], she is an uncle who is had CHF is approximately 60 years old had symptoms for 50 years. No siblings with cardiac issues. She has had a stress test most recently in June. She follows with a primary care and swimming. She did have a CT angio of her chest year ago with no evidence of PE were changes to vasculature at that time. Related Data Home Medications Medication Instructions Recorded Confirmed ALBUTEROL SULFATE (Ventolin / 2 puff INH Q4H PRN ##0 02/06/07 Proventil) TRIAMCINOLONE NASAL INHALER 2 puff INH ##0 02/06/07 (NASACORT) famotidine 20 mg tablet ##0 09/18/12 hydrocodone 5 mg-acetaminophen 300 ##0 12/29/11 mg tablet (Vicodin) lorazepam 0.5 mg tablet ##0 12/29/11 Previous Rx's Medication Instructions Recorded cephalexin 500 mg capsule 500 mg PO BID #10 caps 09/15/21 ketorolac 10 mg tablet 10 mg PO Q6H PRN pain #14 tabs 09/15/21 ondansetron 4 mg disintegrating 4 mg PO TID-QID PRN nausea and 09/15/21 tablet vomiting #10 tabs pantoprazole 40 mg tablet,delayed 40 mg PO DAILY #30 tabs 09/17/21 release (Protonix) ciprofloxacin HCl 500 mg tablet 500 mg PO BID #20 tabs 08/25/22 meloxicam 7.5 mg tablet 7.5 mg PO BID PRN pain #10 tabs 09/17/22 Allergies Allergy/AdvReac Type Severity Reaction Status Date / Time lidocaine [LIDOCAINE] Allergy Mild Verified 09/15/21 21:24 Review of Systems Review of Systems ROS Unobtainable: All systems reviewed & are unremarkable except as noted in HPI and below Patient History Social History Smoking Status: Never smoker Smoking Status: Never smoker alcohol intake frequency: a few times a month Substance Use Type: marijuana Exam Narrative Exam Narrative: GENERAL: Alert and oriented x three, female in mild distress. HEENT: Head normocephalic, atraumatic, EOMI, pupils reactive, face symmetric, moist mucous membranes, no tenderness over the left mastoid. No submandibular lymphadenopathy., no cervical vertebral tenderness. NECK: Supple, full range of motion CARDIOVASCULAR: Regular rate and rhythm without murmurs, rubs or gallops. No JVD. No swelling bilateral lower extremities. RESPIRATORY: Breath sounds equal bilaterally, no wheezes rales or rhonchi. No reproducible chest pain. ABDOMEN: Soft, nontender. Normoactive bowel sounds all 4 quadrants. No guarding or rebound, rigidity, no mass : No CVA tenderness EXTREMITIES: Normal range of motion, no clubbing or edema. Neurovascularly intact. 2+ pulses bilateral upper extremities. NEUROLOGICAL: Cranial nerves II through XII grossly intact. Moving all extremities SKIN: Warm, dry, no petechiae, no rashes or lesions. Initial Vital Signs Initial Vital Signs: Vital Signs Temperature 97.7 F 06/07/23 22:17 Pulse Rate 64 09/16/22 22:17 Respiratory Rate 18 09/16/22 22:17 Blood Pressure 152/74 H 09/16/22 22:17 Pulse Oximetry 99 09/16/22 22:17 Oxygen Delivery Method Room Air 09/16/22 22:17 Scores HEART Score Heart Score history: Moderately Suspicious Heart Score EKG: Normal Heart Score Age: < 45 years old Heart Score risk factors: 1-2 risk factors Heart Score troponin: < or = to normal limit Heart Score Total: 2 Course Orders Ordered: ED Orders 09/16/22 22:22 EKG-12 Lead Stat 09/16/22 22:33 XR chest 1V Stat 09/16/22 23:07 Complete Blood Count AUTO DIFF Stat Comprehensive Metabolic Panel Stat Lipase Stat Magnesium Stat PTT Partial Thromboplastin Attila Stat Prothrombin Time INR Stat Troponin & CK Cardiac Panel Stat 09/17/22 01:04 EKG-12 Lead Stat 09/17/22 01:17 Trop I [Troponin I] Stat Discontinued Medications Aspirin (Aspirin 81 Mg Chew Tab) 324 mg PO NOW ONE Stop: 09/16/22 22:33 Last Admin: 09/16/22 22:51 Dose: 324 mg Documented By: JANEL Ketorolac Tromethamine (Ketorolac 30 Mg/Ml Vial) 15 mg IV NOW ONE Stop: 09/17/22 01:05 Last Admin: 09/17/22 01:23 Dose: 15 mg Documented By: JANEL Vital Signs Vital signs: Vital Signs - 8 hr 09/16/22 23:14 09/16/22 23:16 09/16/22 23:16 Pulse Rate 57 L 63 Respiratory Rate 22 23 Blood Pressure 143/74 H Pulse Oximetry 100 100 Oxygen Delivery Method 09/16/22 23:30 09/16/22 23:31 09/16/22 23:31 Pulse Rate 53 L 54 L Respiratory Rate 20 22 Blood Pressure 137/63 Pulse Oximetry 99 99 Oxygen Delivery Method 09/17/22 00:00 09/17/22 00:01 09/17/22 00:01 Pulse Rate 63 57 L Respiratory Rate 24 19 Blood Pressure 156/75 H Pulse Oximetry 100 100 Oxygen Delivery Method 09/17/22 00:30 09/17/22 00:31 09/17/22 00:31 Pulse Rate 52 L 55 L Respiratory Rate 19 21 Blood Pressure 147/79 H Pulse Oximetry 99 99 Oxygen Delivery Method 09/17/22 01:00 09/17/22 01:30 09/17/22 02:00 Pulse Rate 62 65 65 Respiratory Rate 18 29 H 34 H Blood Pressure Pulse Oximetry 99 98 99 Oxygen Delivery Method 09/17/22 02:30 09/17/22 03:00 09/17/22 03:20 Pulse Rate 51 L 67 67 Respiratory Rate 20 23 16 Blood Pressure 147/62 H Pulse Oximetry 96 100 98 Oxygen Delivery Method Room Air MDM - Chest Pain Lab Data 09/16/22 23:07 09/16/22 23:07 Labs: Lab Results 09/16/22 09/16/22 09/16/22 Range/Units 23:07 23:07 23:07 WBC 10.6 (4.5-11.0) X10^3/uL RBC 4.57 (4.0-5.2) X10^6/uL Hgb 12.3 (12.0-16.0) g/dL Hct 36.0 (36-46) % MCV 78.7 L (80-100) fL MCH 26.9 (26-34) PG MCHC 34.1 (30-36) % RDW 13.6 (11.6-14.8) % Plt Count 311 (150-400) X10^3/uL Neut % (Auto) 65.6 (50-75) % Lymph % (Auto) 27.9 (25-40) % [place] % (Auto) 5.0 (3-14) % Eos % (Auto) 0.8 L (2-4) % Baso % (Auto) 0.7 (0-2) % Neut # (Auto) 7000 (7050-2536) /uL Lymph # (Auto) 3000 (8481-0758) /uL [place] # (Auto) 500 (0-900) /uL Eos # (Auto) 100 (0-450) /uL Baso # (Auto) 100 (0-100) /uL PT 12.8 H (10.1-12.7) SECONDS INR 1.1 (0.9-1.3) APTT 37 H (26-36) SECONDS Sodium 137 (137-145) mmol/L Potassium 3.8 (3.4-5.1) mmol/L Chloride 102 (98-107) mmol/L Carbon Dioxide 27 (22-32) mmol/L BUN 10 (7-17) mg/dL Creatinine 0.75 (0.52-1.04) mg/dL Estimated GFR > 60 (>60) mL/min BUN/Creatinine Ratio 13.3 (6-22) Glucose 96 (70-100) mg/dL Calcium 8.6 (8.4-10.2) mg/dL Magnesium 2.1 (1.6-2.3) mg/dL Total Bilirubin 1.0 (0.2-1.3) mg/dL AST 22 (14-36) IU/L ALT 24 (<35) IU/L Alkaline Phosphatase 79 (38-126) U/L Total Creatine Kinase 96 (30-135) U/L CK-MB (CK-2) TNP CK-MB (CK-2) Rel Index TNP Troponin I < 0.012 (0.01-0.034) ng/mL Total Protein 7.1 (6.3-8.2) g/dL Albumin 4.2 (3.5-5.0) g/dL Globulin 2.9 (1.7-4.1) g/dL Albumin/Globulin Ratio 1.4 (1.0-2.8) Lipase 38 (23-300) U/L 09/17/22 Range/Units 01:17 WBC (4.5-11.0) X10^3/uL RBC (4.0-5.2) X10^6/uL Hgb (12.0-16.0) g/dL Hct (36-46) % MCV (80-100) fL MCH (26-34) PG MCHC (30-36) % RDW (11.6-14.8) % Plt Count (150-400) X10^3/uL Neut % (Auto) (50-75) % Lymph % (Auto) (25-40) % [place] % (Auto) (3-14) % Eos % (Auto) (2-4) % Baso % (Auto) (0-2) % Neut # (Auto) (2148-3250) /uL Lymph # (Auto) (0355-3133) /uL [place] # (Auto) (0-900) /uL Eos # (Auto) (0-450) /uL Baso # (Auto) (0-100) /uL PT (10.1-12.7) SECONDS INR (0.9-1.3) APTT (26-36) SECONDS Sodium (137-145) mmol/L Potassium (3.4-5.1) mmol/L Chloride (98-107) mmol/L Carbon Dioxide (22-32) mmol/L BUN (7-17) mg/dL Creatinine (0.52-1.04) mg/dL Estimated GFR (>60) mL/min BUN/Creatinine Ratio (6-22) Glucose (70-100) mg/dL Calcium (8.4-10.2) mg/dL Magnesium (1.6-2.3) mg/dL Total Bilirubin (0.2-1.3) mg/dL AST (14-36) IU/L ALT (<35) IU/L Alkaline Phosphatase (38-126) U/L Total Creatine Kinase (30-135) U/L CK-MB (CK-2) CK-MB (CK-2) Rel Index Troponin I < 0.012 (0.01-0.034) ng/mL Total Protein (6.3-8.2) g/dL Albumin (3.5-5.0) g/dL Globulin (1.7-4.1) g/dL Albumin/Globulin Ratio (1.0-2.8) Lipase (23-300) U/L Imaging Data Chest x-ray: Radiologist's Impression: [address] [address] XRay Report Signed Patient: Daria Mendosa MR#: [id number] : 1985 Acct:[id number] Age/Sex: 37 / F Date of Service: 09/16/22 Loc: ED Accession Number: [id number] ?? Procedure: XR chest 1V Ordering Provider: Catie Yanez D.O. PROCEDURE:? XR CHEST 1V ? INDICATIONS:? chest pain ? TECHNIQUE:? One view of the chest was acquired.? ? COMPARISON:? [facility], CR, XR CHEST 1V, 09/17/2021, 20:39. ? FINDINGS:? ? Surgical changes and devices:? None.? ? Lungs and pleura:? Lungs are clear.? No pleural effusions or pneumothorax.? ? Mediastinum:? Mediastinal contours appear normal.? Heart size is normal.? ? Bones and chest wall:? No suspicious bony lesions.? Overlying soft tissues appear unremarkable.? ? IMPRESSION:? ? 1.? No acute cardiopulmonary disease. ? ? ? Dictated by: Barrington Gutierrez M.D. on 09/16/2022 at 23:58 ? ? Approved by: Barrington Gutierrez M.D. on 09/16/2022 at 23:58?? ECG Data Attestation: I personally reviewed and interpreted this ECG as follows: Prior ECG tracings: available for review Interpretation: Sinus rhythm rate of 60 MT 140 QRS is 78 [address]TC [address]. No acute ST changes appreciated. Patient has prior EKG has similar-appearing segments in 2 3 and AVF. EKG 2. Sinus rhythm, rate of 61 MT 144, QRS is 76 and QTC of 390. No acute ST changes appreciated. Patient appears similar to prior. EKG 2. MDM Narrative Medical decision making narrative: This is a 37-year-old with family history of coronary artery disease dad at age 42 of [place] and an uncle with CHF no siblings. Patient has had some history of asthma and GERD. Patient has had several episodes she states she is had multiple workups for cardiac evaluation, she had workup at [facility] with what sounds like blood work, EKG and troponins. She has had a CT angio in the past year which did not show acute changes. Patient workup today shows no acute EKG changes, negative chest x-ray, CBC CMP, LFTs and troponin is negative. On examination negative Spurling's, no acute neurologic changes. Patient had an infection in her ear recently but is improving examination does not seem to be source of her pain. Patient had ibuprofen at 5:00 p.m. she has had a stress test in the June. Discussed with patient will repeat troponin and EKG if negative. On recheck no dynamic changes from 1st to 2nd EKG. Second troponin is negative. Discussed today's findings with patient. She found the Toradol helpful. Discussed prescription for similar type medication, she would like to avoid any narcotics or opiates. Discharge Plan Departure Patient Disposition: Home Clinical Impression: Atypical chest pain Instructions: DI for Atypical Chest Pain Activity Restrictions/Additional Instructions: Follow-up with your physician for recheck and further testing as needed. You can continue your medications at home as prescribed. You may take Tylenol up to a 1000 mg every 6 hours as needed. You may take meloxicam 1 tablet every 12 hours as needed. This medication is similar to ibuprofen do not take Aleve, naproxen or similar ibuprofen take medications. Prescription sent to [facility]. Please return if you are having new or worsening symptoms, new chest pain, shortness of breath, lightheadedness or passing out, persistent vomiting, new weakness loss of sensation or other new or concerning changes. Prescriptions: New meloxicam 7.5 mg tablet 7.5 mg PO BID PRN (Reason: pain) Qty: 10 0RF No Action ALBUTEROL SULFATE (Ventolin / Proventil) 2 puff INH Q4H PRN Qty: 0 TRIAMCINOLONE NASAL INHALER (NASACORT) 2 puff INH Qty: 0 lorazepam 0.5 MG tablet Qty: 0 hydrocodone-acetaminophen [Vicodin] 5 MG/300 MG tablet Qty: 0 famotidine 20 MG tablet Qty: 0 pantoprazole [Protonix] 40 mg tablet,delayed release (DR/EC) 40 mg PO DAILY Qty: 30 0RF ketorolac 10 mg tablet 10 mg PO Q6H PRN (Reason: pain) Qty: 14 0RF cephalexin 500 mg capsule 500 mg PO BID Qty: 10 0RF ondansetron 4 mg tablet,disintegrating 4 mg PO TID-QID PRN (Reason: nausea and vomiting) Qty: 10 0RF ciprofloxacin HCl 500 mg tablet 500 mg PO BID Qty: 20 0RF Referrals: Jesus Alberto Art PA-C [Primary Care Provider] - Stand Alone Forms: Patient Portal/API
[2022-09-17] MEDS: KETOROLAC 30 MG/ML VIAL 15 MG IV (01:23)
[2022-09-17 01:53] LABS: Troponin I < 0.012 ng/mL (0.01-0.034)
== END 2022-09-17 03:27 | disposition home or self-care (01) ==
PROVIDERS: Emergency Provider Emergency Medicine; Family Provider Physician Assistant; PCP Physician Assistant
DX: R07.89 Other chest pain (principal); M54.2 Cervicalgia; Z82.49 Family history of ischemic heart disease and other diseases of the circulatory system
CPT/HCPCS: 36415; 71045; 80053; 82550; 83690; 83735; 84484; 85025; 85610; 85730; 93005; 93010; 96374; 99284; J1885

== ENCOUNTER 2022-09-18 18:58 | Emergency (ER) | payer OTHER, SELFPAY ==
[2022-09-18 19:02] VITALS: BP 145/89; PULSE 69; RESP 19; TEMP 36.3; O2SAT 98; BMI 37.3
--- NOTE | 2022-09-18 19:02 | DI.RAD.S_ITS ---
PROCEDURE: XR CHEST 1V INDICATIONS: chest pain TECHNIQUE: One view of the chest was acquired. COMPARISON: [facility], CR, XR CHEST 1 VIEW, 09/16/2022, 20:06. [facility], CR, XR CHEST 1 VIEW, 09/11/2022, 23:11. [facility], CR, XR CHEST 1V, 09/16/2022, 22:34. FINDINGS: Surgical changes and devices: None. Lungs and pleura: Lungs are clear. No pleural effusions or pneumothorax. Mediastinum: Mediastinal contours appear normal. Heart size is mildly increased. Bones and chest wall: No suspicious bony lesions. Overlying soft tissues appear unremarkable. IMPRESSION: Mild cardiomegaly. Dictated by: Jefferson Cali M.D. on 09/18/2022 at 19:38 Approved by: Jefferson Cali M.D. on 09/18/2022 at 19:38
[2022-09-18 19:09] VITALS: BP 194/94; PULSE 87; RESP 18; O2SAT 99
--- NOTE | 2022-09-18 19:17 | ED.GENADULT ---
HPI - General Adult General Chief complaint: Dizziness Stated complaint: Chest/Neck pain Time Seen by Provider: 09/18/22 18:59 Source: patient Mode of arrival: Family Vehicle History of Present Illness HPI narrative: 37-year-old woman with a history of reflux and reactive airway disease, hypertension, hyperlipidemia presents complaining of head feeling ?woozy? significant dizziness a ?weird? feeling all day long. She had some minor chest pain earlier today but states that is better. She was seen on August 22 at urgent care with ear pain with otitis media and spontaneous tympanic membrane rupture. She was seen again on September 11 at [facility] for evaluation of chest pain that was midsternal associated with diaphoresis and radiating down the left arm and into her neck. Workup at that time a heart score of 1 with troponins negative x2. Her pain was complicated by anxiety and eventually felt to be more radicular neck pain and improve with Toradol. She was seen on September 17 at this emergency department with similar complaints of chest pain. Workup again was unremarkable in the emergency department with a low heart score and negative troponins x2, she was given a prescription for Naprosyn. She presents today with similar complaints but is noted to be mildly orthostatic. She is had no fevers, cough, chills, palpitation. No vomiting or diarrhea. Related Data Home Medications Medication Instructions Recorded Confirmed ALBUTEROL SULFATE (Ventolin / 2 puff INH Q4H PRN ##0 02/06/07 Proventil) TRIAMCINOLONE NASAL INHALER 2 puff INH ##0 02/06/07 (NASACORT) famotidine 20 mg tablet ##0 12/29/11 hydrocodone 5 mg-acetaminophen 300 ##0 12/29/11 mg tablet (Vicodin) lorazepam 0.5 mg tablet ##0 12/29/11 Previous Rx's Medication Instructions Recorded cephalexin 500 mg capsule 500 mg PO BID #10 caps 09/15/21 ketorolac 10 mg tablet 10 mg PO Q6H PRN pain #14 tabs 09/15/21 ondansetron 4 mg disintegrating 4 mg PO TID-QID PRN nausea and 09/15/21 tablet vomiting #10 tabs pantoprazole 40 mg tablet,delayed 40 mg PO DAILY #30 tabs 09/17/21 release (Protonix) ciprofloxacin HCl 500 mg tablet 500 mg PO BID #20 tabs 08/25/22 meloxicam 7.5 mg tablet 7.5 mg PO BID PRN pain #10 tabs 09/17/22 Allergies Allergy/AdvReac Type Severity Reaction Status Date / Time lidocaine [LIDOCAINE] Allergy Mild Verified 09/18/22 19:02 Review of Systems Review of Systems Narrative: Pertinent positive and negative findings as per HPI Patient History Social History Smoking Status: Never smoker Smoking Status: Never smoker alcohol intake frequency: holidays/special occasions only Substance Use Type: marijuana Exam Initial Vital Signs Initial Vital Signs: Vital Signs Temperature 97.4 F L 09/18/22 19:02 Pulse Rate 69 09/18/22 19:02 Respiratory Rate 19 09/18/22 19:02 Blood Pressure 145/89 H 09/18/22 19:02 Pulse Oximetry 98 09/18/22 19:02 Oxygen Delivery Method Room Air 09/18/22 19:02 General: Healthy appearing, in no acute distress. Able to give a complete and coherent history. Well-nourished well-developed HEENT: Moist mucous membranes, normal sclera with reactive pupils, Neck: No JVD, supple Respiratory: Lungs are clear to auscultation, no wheezing no rales no rhonchi. Full and symmetrical air movement Cardiac: Regular rate and rhythm no murmurs no bruits. Positive for orthostatic hypotension Abdomen: Soft, nontender, good bowel tones, no flank pain Skin: Warm and dry, no rashes Neurologic: Grossly neurologically intact with no obvious asymmetries or abnormalities Extremities: No trauma, well perfused Psych: Cooperative, appropriate insight and affect Course Orders Ordered: ED Orders 09/18/22 19:02 XR chest 1V Stat EKG-12 Lead Stat 09/18/22 19:24 Complete Blood Count AUTO DIFF Stat Comprehensive Metabolic Panel Stat Lipase Stat Magnesium Stat PTT Partial Thromboplastin Attila Stat Prothrombin Time INR Stat Troponin & CK Cardiac Panel Stat 09/18/22 19:37 Urine Microscopic Stat Discontinued Medications Sodium Chloride (Normal Saline 0.9%) 1,000 mls @ 2,000 mls/hr IV BOLUS ONE Stop: 09/18/22 19:45 Last Infusion: 09/18/22 20:35 Dose: 0 mls/hr Documented By: Admin: 09/18/22 19:31 Dose: 2,000 mls/hr Documented By: JORDAN Vital Signs Vital signs: Vital Signs - 8 hr 09/18/22 19:02 09/18/22 19:09 09/18/22 21:06 Temperature 97.4 F L Pulse Rate 69 87 52 L Respiratory Rate 19 18 14 Blood Pressure 145/89 H 194/94 H 146/78 H Pulse Oximetry 98 99 100 Oxygen Delivery Method Room Air Room Air 09/18/22 22:20 Temperature Pulse Rate 53 L Respiratory Rate 14 Blood Pressure 149/90 H Pulse Oximetry 99 Oxygen Delivery Method Room Air Medical Decision Making Lab Data 09/18/22 19:24 09/18/22 19:24 Labs: Lab Results 09/18/22 09/18/22 09/18/22 Range/Units 19:24 19:24 19:24 WBC 11.9 H (4.5-11.0) X10^3/uL RBC 4.83 (4.0-5.2) X10^6/uL Hgb 12.9 (12.0-16.0) g/dL Hct 38.0 (36-46) % MCV 78.6 L (80-100) fL MCH 26.6 (26-34) PG MCHC 33.8 (30-36) % RDW 13.7 (11.6-14.8) % Plt Count 338 (150-400) X10^3/uL Neut % (Auto) 71.5 (50-75) % Lymph % (Auto) 21.5 L (25-40) % [place]ook[place] % (Auto) 5.3 (3-14) % Eos % (Auto) 1.0 L (2-4) % Baso % (Auto) 0.7 (0-2) % Neut # (Auto) 8500 H (5034-0530) /uL Lymph # (Auto) 2600 (8143-6890) /uL Rooks # (Auto) 600 (0-900) /uL Eos # (Auto) 100 (0-450) /uL Baso # (Auto) 100 (0-100) /uL PT 12.6 (10.1-12.7) SECONDS INR 1.1 (0.9-1.3) APTT 35 (26-36) SECONDS Sodium 137 (137-145) mmol/L Potassium 3.8 (3.4-5.1) mmol/L Chloride 104 (98-107) mmol/L Carbon Dioxide 27 (22-32) mmol/L BUN 10 (7-17) mg/dL Creatinine 0.74 (0.52-1.04) mg/dL Estimated GFR > 60 (>60) mL/min BUN/Creatinine Ratio 13.5 (6-22) Glucose 102 H (70-100) mg/dL Calcium 8.9 (8.4-10.2) mg/dL Magnesium 1.9 (1.6-2.3) mg/dL Total Bilirubin 0.7 (0.2-1.3) mg/dL AST 20 (14-36) IU/L ALT 23 (<35) IU/L Alkaline Phosphatase 81 (38-126) U/L Total Creatine Kinase 114 (30-135) U/L CK-MB (CK-2) TNP CK-MB (CK-2) Rel Index TNP Troponin I < 0.012 (0.01-0.034) ng/mL Total Protein 7.3 (6.3-8.2) g/dL Albumin 4.2 (3.5-5.0) g/dL Globulin 3.1 (1.7-4.1) g/dL Albumin/Globulin Ratio 1.4 (1.0-2.8) Lipase 41 (23-300) U/L Urine RBC (0-5/HPF) Urine WBC (0-5/HPF) Ur Squamous Epith Cells (0-5/HPF) Urine Bacteria (None) Ur Culture Indicated? 09/18/22 Range/Units 19:37 WBC (4.5-11.0) X10^3/uL RBC (4.0-5.2) X10^6/uL Hgb (12.0-16.0) g/dL Hct (36-46) % MCV (80-100) fL MCH (26-34) PG MCHC (30-36) % RDW (11.6-14.8) % Plt Count (150-400) X10^3/uL Neut % (Auto) (50-75) % Lymph % (Auto) (25-40) % [place] % (Auto) (3-14) % Eos % (Auto) (2-4) % Baso % (Auto) (0-2) % Neut # (Auto) (1432-5007) /uL Lymph # (Auto) (4628-6424) /uL [place]ooks # (Auto) (0-900) /uL Eos # (Auto) (0-450) /uL Baso # (Auto) (0-100) /uL PT (10.1-12.7) SECONDS INR (0.9-1.3) APTT (26-36) SECONDS Sodium (137-145) mmol/L Potassium (3.4-5.1) mmol/L Chloride (98-107) mmol/L Carbon Dioxide (22-32) mmol/L BUN (7-17) mg/dL Creatinine (0.52-1.04) mg/dL Estimated GFR (>60) mL/min BUN/Creatinine Ratio (6-22) Glucose (70-100) mg/dL Calcium (8.4-10.2) mg/dL Magnesium (1.6-2.3) mg/dL Total Bilirubin (0.2-1.3) mg/dL AST (14-36) IU/L ALT (<35) IU/L Alkaline Phosphatase (38-126) U/L Total Creatine Kinase (30-135) U/L CK-MB (CK-2) CK-MB (CK-2) Rel Index Troponin I (0.01-0.034) ng/mL Total Protein (6.3-8.2) g/dL Albumin (3.5-5.0) g/dL Globulin (1.7-4.1) g/dL Albumin/Globulin Ratio (1.0-2.8) Lipase (23-300) U/L Urine RBC 1-5/hpf (0-5/HPF) Urine WBC None seen (0-5/HPF) Ur Squamous Epith Cells 1-5 /hpf D (0-5/HPF) Urine Bacteria Few (2-10) H (None) Ur Culture Indicated? Cult not indicated Urine Dip Bedside Urine Glucose Negative Bedside Urine Bilirubin - Negative Bedside Urine Ketone - Negative Urine Specific [place] 1.005 Bedside Urine Occult Blood - Negative Bedside Urine pH 7 Bedside Urine Protein - Negative Bedside Urine Urobilinogen - Negative Bedside Urine Nitrite - Negative Bedside Urine Leukocytes - Negative Esterase Point of care testing: Urine Dip Bedside Urine Glucose Negative Bedside Urine Bilirubin - Negative Bedside Urine Ketone - Negative Urine Specific [place] 1.005 Bedside Urine Occult Blood - Negative Bedside Urine pH 7 Bedside Urine Protein - Negative Bedside Urine Urobilinogen - Negative Bedside Urine Nitrite - Negative Bedside Urine Leukocytes - Negative Esterase MDM Narrative Medical decision making narrative: CC: Dizziness when standing up as well as chest pain. This is an acute problem uncertain prognosis Complicating co-morbidities: Medical records indicate a history of generalized anxiety disorder. This is now her 3rd or 4th visit for similar complaints she does have an appointment with Cardiology in 2 weeks. Data collected from: patient, Medical records reviewed: Your notes from [facility] are reviewed prior atypical chest pain note from September 17 at [facility] as reviewed Differential considered: Dehydration, orthostatic hypotension, acute coronary syndrome, cardiomyopathy Exam documented above, pertinent findings include: Lab Test results independently reviewed as above. Pertinent findings: Independently reviewed EKG shows sinus rhythm at a rate of 65. Normal intervals, normal axis, no acute ischemic changes Imaging studies independently reviewed: Chest x-ray shows mild cardiomegaly with no other findings of concern Treatments: IV fluids Re-evaluations: Initial blood pressure sitting 145/79 with a heart rate 65., standing heart rate increases to 85 and blood pressure drops to 114/94 After a L of fluid heart rate is 51 supine 60 standing up. Blood pressure supine is 171/73 and standing is 149/90. Discussion: 37-year-old woman who complains of dizziness and general malaise when she is standing up. She is had 4 visits to emergency and urgent cares over the last 2 weeks with similar complaints and findings area cardiac workup has been unremarkable each time. She does have a follow-up with Cardiology coming up. She states she had been feeling a bit better had a bit of diarrhea yesterday that has now resolved. Significantly orthostatic on arrival and after a L of fluid blood pressure and heart rate are significantly improved and clinically she feels that she is back to her baseline. She is able to drink and has had a full glass of water at this point. At this point there is no evidence of continued diarrhea, continued reasons for dehydration or orthostasis, no acute coronary syndrome, no suggestion of bacterial or viral etiology at this time. Findings reviewed with patient and she is safe for home discharge Discharge Plan Departure Patient Disposition: Home Clinical Impression: Orthostatic hypotension, Acute dehydration, Diarrhea Instructions: DI for Dehydration -- Adult Activity Restrictions/Additional Instructions: Thank you for coming in today I suspect that the diarrhea that you had yesterday caused some mild dehydration which was giving you the symptoms of dizziness when you stand up today. With a L of fluid your symptoms as well as heart rate and blood pressure all significantly improved. Workup today does not suggest heart attack, bacterial infection that would require antibiotics, viral infection or other life-threatening abnormalities that would require further workup or hospitalization today. Please make sure you are drinking plenty of fluids over the course of the next 24 hours. Please make sure you do keep your follow-up appointment with Cardiology If you find that you are getting worse or develop any new symptoms, please feel free to return to the emergency department for further evaluation. Prescriptions: No Action ALBUTEROL SULFATE (Ventolin / Proventil) 2 puff INH Q4H PRN Qty: 0 TRIAMCINOLONE NASAL INHALER (NASACORT) 2 puff INH Qty: 0 lorazepam 0.5 MG tablet Qty: 0 hydrocodone-acetaminophen [Vicodin] 5 MG/300 MG tablet Qty: 0 famotidine 20 MG tablet Qty: 0 pantoprazole [Protonix] 40 mg tablet,delayed release (DR/EC) 40 mg PO DAILY Qty: 30 0RF ketorolac 10 mg tablet 10 mg PO Q6H PRN (Reason: pain) Qty: 14 0RF cephalexin 500 mg capsule 500 mg PO BID Qty: 10 0RF ondansetron 4 mg tablet,disintegrating 4 mg PO TID-QID PRN (Reason: nausea and vomiting) Qty: 10 0RF ciprofloxacin HCl 500 mg tablet 500 mg PO BID Qty: 20 0RF meloxicam 7.5 mg tablet 7.5 mg PO BID PRN (Reason: pain) Qty: 10 0RF Referrals: Jesus Alberto Art PA-C [Primary Care Provider] - Stand Alone Forms: Patient Portal/API
[2022-09-18 19:30] LABS: Add Manual Diff / Slide Review NO; Basophils Absolute Auto 100 /uL (0-100); Basophils Percent Auto 0.7 % (0-2); Eosinophils Absolute Auto 100 /uL (0-450); Hemoglobin 12.9 g/dL (12.0-16.0); Lymphocytes Absolute Auto 2600 /uL (1100-4500); Lymphocytes Percent Auto 21.5 % (25-40); Mean Corpuscular HGB Conc 33.8 % (30-36); Mean Corpuscular Hemoglobin 26.6 PG (26-34); Mean Corpuscular Volume 78.6 fL (80-100); Monocytes Absolute Auto 600 /uL (0-900); Monocytes Percent Auto 5.3 % (3-14); Neutrophils Absolute Auto 8500 /uL (1500-7000); Neutrophils Percent Auto 71.5 % (50-75); Platelet Count 338 X10^3/uL (150-400); Red Blood Cell Count 4.83 X10^6/uL (4.0-5.2); Red Cell Distribution Width 13.7 % (11.6-14.8); White Blood Cell Count 11.9 X10^3/uL (4.5-11.0)
[2022-09-18] MEDS: SODIUM CHLORIDE 0.9% 1,000 ML 2000 ML IV (19:31)
[2022-09-18 19:38] LABS: INR 1.1 (0.9-1.3); Prothrombin Time 12.6 SECONDS (10.1-12.7)
[2022-09-18 19:40] LABS: PTT Partial Thromboplastin Tim 35 SECONDS (26-36)
[2022-09-18 19:43] LABS: Alanine Aminotransferase 23 IU/L (<35); Albumin 4.2 g/dL (3.5-5.0); Albumin Globulin Ratio 1.4 (1.0-2.8); Alkaline Phosphatase 81 U/L (38-126); Aspartate Aminotransferase 20 IU/L (14-36); BUN Creatinine Ratio 13.5 (6-22); Bilirubin Total 0.7 mg/dL (0.2-1.3); Blood Urea Nitrogen 10 mg/dL (7-17); Calcium 8.9 mg/dL (8.4-10.2); Carbon Dioxide 27 mmol/L (22-32); Chloride 104 mmol/L (98-107); Creatine Kinase 114 U/L (30-135); Estimated Glomerular Filt Rate > 60 mL/min (>60); Globulin 3.1 g/dL (1.7-4.1); Glucose 102 mg/dL (70-100); HEMOLYSIS < 15 (0-50); Lipase 41 U/L (23-300); Magnesium 1.9 mg/dL (1.6-2.3); Potassium 3.8 mmol/L (3.4-5.1); Sodium 137 mmol/L (137-145); Total Protein 7.3 g/dL (6.3-8.2)
[2022-09-18 19:54] LABS: Troponin I < 0.012 ng/mL (0.01-0.034)
[2022-09-18 21:06] VITALS: BP 146/78; PULSE 52; RESP 14; O2SAT 100
[2022-09-18 21:27] LABS: Bacteria Urine Few (2-10); RBC Urine 1-5/HPF (0-5/HPF); Squamous Epithelial Cell Urine 1-5 /HPF (0-5/HPF); WBC Urine None Seen (0-5/HPF)
[2022-09-18 21:28] LABS: Culture Indicated Urine Cult Not Indicated
[2022-09-18 22:20] VITALS: BP 149/90; PULSE 53; RESP 14; O2SAT 99
== END 2022-09-18 22:58 | disposition home or self-care (01) ==
PROVIDERS: Emergency Provider Emergency Medicine; Family Provider Physician Assistant; PCP Physician Assistant
DX: I95.1 Orthostatic hypotension (principal); E86.0 Dehydration; R19.7 Diarrhea, unspecified; R07.9 Chest pain, unspecified
CPT/HCPCS: 36415; 71045; 80053; 81003; 81015; 82550; 83690; 83735; 84484; 85025; 85610; 85730; 93005; 93010; 99284

== ENCOUNTER 2023-09-10 08:08 | Emergency (ER) | payer OTHER, SELFPAY ==
--- NOTE | 2023-09-10 08:19 | DI.RAD.S_ITS ---
PROCEDURE: XR CHEST 1V INDICATIONS: chest pain TECHNIQUE: One view of the chest was acquired. COMPARISON: [facility], CR, XR CHEST 1 VIEW, 03/28/2023, 20:08. [facility], CR, XR CHEST 1V, 09/18/2022, 19:09. [facility], CR, XR CHEST 1V, 09/16/2022, 22:34. FINDINGS: Surgical changes and devices: None. Lungs and pleura: Lungs are clear. No pleural effusions or pneumothorax. Mediastinum: Mediastinal contours appear normal. Heart size is normal. Bones and chest wall: No suspicious bony lesions. Overlying soft tissues appear unremarkable. IMPRESSION: No acute cardiopulmonary abnormality is seen. Dictated by: Rishi Wu M.D. on 09/10/2023 at 9:04 Approved by: Rishi Wu M.D. on 09/10/2023 at 9:04
[2023-09-10 08:26] VITALS: BP 142/81; PULSE 69; RESP 12; TEMP 36.8; O2SAT 98; BMI 40.1
--- NOTE | 2023-09-10 08:26 | ED.CHESTPAIN ---
HPI - Chest Pain General Chief Complaint: Chest Pain Stated Complaint: CHEST PAIN Time Seen by Provider: 09/10/23 08:17 History of Present Illness HPI narrative: Patient is a 38-year-old female with history of acid reflux mild asthma presenting today with left-sided chest pain. He reports that she noticed a little bit last night however this morning while getting ready for the shower went up into her armpit and into her arm. She reports that nothing makes it better or worse. It is sharp and stabbing. She feels little bit nauseous no vomiting. No significant shortness of breath. No known coronary artery disease. She denies any sort of recent travel. It appears that about this time every year she presents with atypical chest pain. She denies any sort of abdominal pain. She denies any sort of palpitations. Patient reports that she was admitted to [facility] year ago she had an EGD diagnosed gastritis she had a nuclear stress test is negative Dad of DE age of 40 Related Data Home Medications Medication Instructions Recorded Confirmed ALBUTEROL SULFATE (Ventolin / 2 puff INH Q4H PRN ##0 02/06/07 Proventil) TRIAMCINOLONE NASAL INHALER 2 puff INH ##0 02/06/07 (NASACORT) famotidine 20 mg tablet ##0 12/29/11 hydrocodone 5 mg-acetaminophen 300 ##0 12/29/11 mg tablet (Vicodin) lorazepam 0.5 mg tablet ##0 12/29/11 Previous Rx's Medication Instructions Recorded cephalexin 500 mg capsule 500 mg PO BID #10 caps 09/15/21 ketorolac 10 mg tablet 10 mg PO Q6H PRN pain #14 tabs 09/15/21 ondansetron 4 mg disintegrating 4 mg PO TID-QID PRN nausea and 09/15/21 tablet vomiting #10 tabs pantoprazole 40 mg tablet,delayed 40 mg PO DAILY #30 tabs 09/17/21 release (Protonix) ciprofloxacin HCl 500 mg tablet 500 mg PO BID #20 tabs 08/25/22 meloxicam 7.5 mg tablet 7.5 mg PO BID PRN pain #10 tabs 09/17/22 Allergies Allergy/AdvReac Type Severity Reaction Status Date / Time lidocaine [LIDOCAINE] Allergy Mild Verified 09/10/23 08:30 Patient History Social History Smoking Status: Never smoker Smoking Status: Never smoker alcohol intake frequency: holidays/special occasions only Substance Use Type: marijuana Exam Initial Vital Signs Initial Vital Signs: Vital Signs Temperature 98.2 F 09/10/23 08:26 Pulse Rate 69 09/10/23 08:26 Respiratory Rate 12 09/10/23 08:26 Blood Pressure 142/81 H 09/10/23 08:26 Pulse Oximetry 98 09/10/23 08:26 Oxygen Delivery Method Room Air 09/10/23 08:26 GENERAL: Alert tearful 38-year-old female and in no acute distress. HEENT: Head atraumatic,EOMI, pupils reactive, face symmetric, moist mucous membranes CARDIOVASCULAR: Regular rate and rhythm without murmurs, rubs or gallops. RESPIRATORY: Breath sounds equal bilaterally, no wheezes rales or rhonchi. ABDOMEN: Soft, nontender. Normoactive bowel sounds all 4 quadrants. No guarding or rebound. Negative Loza's sign no epigastric pain EXTREMITIES: Normal range of motion, no clubbing or edema. Neurovascularly intact NEUROLOGICAL: Alert and oriented x4.Normal gait and speech. Cranial nerves II through XII grossly intact. SKIN: Warm, dry, no laceration, no petechiae, no rashes or lesions. Scores HEART Score Heart Score history: Slightly Suspicious Heart Score EKG: Normal Heart Score Age: < 45 years old Heart Score risk factors: 1-2 risk factors Heart Score troponin: < or = to normal limit Heart Score Total: 1 Course Orders Ordered: ED Orders 09/10/23 08:19 XR chest 1V Stat EKG-12 Lead Stat 09/10/23 08:23 Complete Blood Count AUTO DIFF Stat Comprehensive Metabolic Panel Stat D Dimer Stat Lipase Stat Magnesium Stat PTT Partial Thromboplastin Attila Stat Prothrombin Time INR Stat Troponin & CK Cardiac Panel Stat 09/10/23 09:38 Urine Culture Stat Urine Microscopic Stat 09/10/23 10:30 Trop I [Troponin I] Stat 09/10/23 10:37 EKG-12 Lead Stat Discontinued Medications Aspirin (Aspirin 81 Mg Chew Tab) 324 mg PO NOW ONE Stop: 09/10/23 08:19 Last Admin: 09/10/23 08:52 Dose: 324 mg Documented By: NAS Nitroglycerin (Nitroglycerin 0.4 Mg Sl Tab) 0.4 mg SL NOW ONE Stop: 09/10/23 08:28 Last Admin: 09/10/23 08:37 Dose: 0.4 mg Documented By: NAS Pantoprazole Sodium (Pantoprazole 40 Mg Vial) 40 mg IV NOW ONE Stop: 09/10/23 08:28 Last Admin: 09/10/23 08:38 Dose: 40 mg Documented By: NAS Vital Signs Vital signs: Vital Signs - 8 hr 09/10/23 08:26 09/10/23 08:37 09/10/23 10:13 Temperature 98.2 F Pulse Rate 69 69 59 L Respiratory Rate 12 12 Blood Pressure 142/81 H 143/72 H Pulse Oximetry 98 98 Oxygen Delivery Method Room Air 09/10/23 10:14 09/10/23 10:14 09/10/23 10:30 Temperature Pulse Rate 61 63 Respiratory Rate 18 15 Blood Pressure 125/81 Pulse Oximetry 99 99 Oxygen Delivery Method 09/10/23 10:30 09/10/23 11:00 09/10/23 11:00 Temperature Pulse Rate 58 L Respiratory Rate 15 Blood Pressure 132/76 137/81 Pulse Oximetry 97 Oxygen Delivery Method Room Air MDM - Chest Pain Lab Data 09/10/23 08:23 09/10/23 08:23 Labs: Lab Results 09/10/23 09/10/23 09/10/23 Range/Units 08:23 09:38 10:30 WBC 9.5 (4.5-11.0) X10^3/uL RBC 5.24 H (4.0-5.2) X10^6/uL Hgb 13.9 (12.0-16.0) g/dL Hct 40.8 (36-46) % MCV 77.9 L (80-100) fL MCH 26.5 (26-34) PG MCHC 34.0 (30-36) % RDW 13.7 (11.6-14.8) % Plt Count 331 (150-400) X10^3/uL Neut % (Auto) 71.7 (50-75) % Lymph % (Auto) 22.5 L (25-40) % [place] % (Auto) 4.1 (3-14) % Eos % (Auto) 1.1 L (2-4) % Baso % (Auto) 0.6 (0-2) % Neut # (Auto) 6800 (6021-9288) /uL Lymph # (Auto) 2100 (3621-1777) /uL [place] # (Auto) 400 (0-900) /uL Eos # (Auto) 100 (0-450) /uL Baso # (Auto) 100 (0-100) /uL PT 11.6 (9.4-12.5) SECONDS INR 1.0 (0.9-1.3) APTT 40 H (25.1-36.5) SECONDS D-Dimer 753 H (<500) ng/ml Sodium 140 (137-145) mmol/L Potassium 3.9 (3.4-5.1) mmol/L Chloride 107 (98-107) mmol/L Carbon Dioxide 26 (22-32) mmol/L BUN 11 (7-17) mg/dL Creatinine 0.73 (0.52-1.04) mg/dL Estimated GFR > 60 (>60) mL/min BUN/Creatinine Ratio 15.1 (6-22) Glucose 107 H (70-100) mg/dL Calcium 9.3 (8.4-10.2) mg/dL Magnesium 2.1 (1.6-2.3) mg/dL Total Bilirubin 1.1 (0.2-1.3) mg/dL AST 23 (14-36) IU/L ALT 18 (<35) IU/L Alkaline Phosphatase 81 (38-126) U/L Total Creatine Kinase 89 (30-135) U/L Troponin I < 0.012 < 0.012 (0.01-0.034) ng/mL Total Protein 7.9 (6.3-8.2) g/dL Albumin 4.6 (3.5-5.0) g/dL Globulin 3.3 (1.7-4.1) g/dL Albumin/Globulin Ratio 1.4 (1.0-2.8) Lipase 45 (23-300) U/L Urine RBC 1-5/hpf (0-5/HPF) Urine WBC 1-5/hpf (0-5/HPF) Ur Squamous Epith Cells 10-30 /hpf H D (0-5/HPF) Urine Bacteria Occasional (0-1) (None) Ur Culture Indicated? Specimen cultured Vol Urine Centrifuged 10ml (spun) Point of Care Testing Test Results Negative Urine Dip Bedside Urine Glucose Negative Bedside Urine Bilirubin - Negative Bedside Urine Ketone - Negative Urine Specific [place] 1.005 Bedside Urine Occult Blood + Bedside Urine pH 6.5 Bedside Urine Protein - Negative Bedside Urine Urobilinogen - Negative Bedside Urine Nitrite - Negative Bedside Urine Leukocytes +/- 15 Esterase Imaging Data Chest x-ray: Radiologist's Impression: PROCEDURE: XR CHEST 1V INDICATIONS: chest pain TECHNIQUE: One view of the chest was acquired. COMPARISON: [facility], CR, XR CHEST 1 VIEW, 03/28/2023, 20:08. [facility], CR, XR CHEST 1V, 09/18/2022, 19:09. [facility], CR, XR CHEST 1V, 09/16/2022, 22:34. FINDINGS: Surgical changes and devices: None. Lungs and pleura: Lungs are clear. No pleural effusions or pneumothorax. Mediastinum: Mediastinal contours appear normal. Heart size is normal. Bones and chest wall: No suspicious bony lesions. Overlying soft tissues appear unremarkable. IMPRESSION: No acute cardiopulmonary abnormality is seen. Dictated by: Rishi Wu M.D. on 09/10/2023 at 9:04 ECG Data Attestation: I personally reviewed and interpreted this ECG as follows: Prior ECG tracings: available for review Interpretation: Normal sinus rhythm rate 73 CT interval 160 QRS [address] changes Q-wave noted in lead 3 with T-wave inversions similar to previous EKGs Sinus rhythm rate 68 no ischemic changes similar to prior MDM Narrative Medical decision making narrative: Patient is a 38-year-old female coming today with chest discomfort. Radiating up into her left axilla area. She reports that she chronically has some left-sided neck pain and numbness and tingling down the left arm since an accident during cheerleading many years ago. She has actually gotten better. She frequently some left-sided chest pain about this time every year since 2021. She had a complete workup at [facility] last year . She reports that her father in front of her at the age of 40 in the month of May. She does not think that her chest pain is related traumatic event. She reports that she has under a lot of stress work right now they are actually leaving to go on vacation to organ to the beach. Blood work has been reviewed she is 2- troponins no CHELITA or anemia D-dimer is mildly elevated at 753 Chest x-ray reviewed acute cardiopulmonary process Years score is negative Heart Score 1 At this time I feel that patient is safe to be discharged home. Encouraged her that if pain worsens then she should return to ED the closest 1. I also encouraged her to follow-up with her primary care provider for possible repeat testing. She has been chest pain-free she is received nitroglycerin Protonix and aspirin here in the ED. She started feeling little bit better after the nitro YEARS Algorithm for Pulmonary Embolism (PE) from [employer] on 09/10/2023 All calculations should be rechecked by clinician prior to use RESULT SUMMARY: PE excluded YEARS algorithm rules out PE (0.43% with symptomatic VTE during 3-month follow-up) INPUTS: patient ?> 0 = No Clinical signs of DVT ?> 0 = No Hemoptysis ?> 0 = No PE most likely diagnosis ?> 0 = No D-dimer >=,000 ng/mL ?> 0 = No Discharge Plan Departure Patient Disposition: Home Clinical Impression: Atypical chest pain Instructions: DI for Atypical Chest Pain Activity Restrictions/Additional Instructions: *You have been diagnosed with atypical chest pain *What to do: This time please follow-up with your primary care provider may need repeat stress test I do recommend that you disconnect from your phone social media and relax on the beach *Continue to take medications as directed *Follow up with your primary care provider in 2-3 days or call [phone] *Return to ER if you should have increasing chest pain shortness of breath weakness numbness or tingling [or] any new, worsening or concerning symptoms Prescriptions: No Action ALBUTEROL SULFATE (Ventolin / Proventil) 2 puff INH Q4H PRN Qty: 0 TRIAMCINOLONE NASAL INHALER (NASACORT) 2 puff INH Qty: 0 lorazepam 0.5 MG tablet Qty: 0 hydrocodone-acetaminophen [Vicodin] 5 MG/300 MG tablet Qty: 0 famotidine 20 MG tablet Qty: 0 pantoprazole [Protonix] 40 mg tablet,delayed release (DR/EC) 40 mg PO DAILY Qty: 30 0RF ketorolac 10 mg tablet 10 mg PO Q6H PRN (Reason: pain) Qty: 14 0RF cephalexin 500 mg capsule 500 mg PO BID Qty: 10 0RF ondansetron 4 mg tablet,disintegrating 4 mg PO TID-QID PRN (Reason: nausea and vomiting) Qty: 10 0RF ciprofloxacin HCl 500 mg tablet 500 mg PO BID Qty: 20 0RF meloxicam 7.5 mg tablet 7.5 mg PO BID PRN (Reason: pain) Qty: 10 0RF Referrals: Jesus Alberto Art PA-C [Primary Care Provider] - Stand Alone Forms: Patient Portal/API
[2023-09-10 08:33] LABS: Add Manual Diff / Slide Review NO; Basophils Absolute Auto 100 /uL (0-100); Basophils Percent Auto 0.6 % (0-2); Eosinophils Absolute Auto 100 /uL (0-450); Eosinophils Percent Auto 1.1 % (2-4); Hematocrit 40.8 % (36-46); Hemoglobin 13.9 g/dL (12.0-16.0); Lymphocytes Absolute Auto 2100 /uL (1100-4500); Lymphocytes Percent Auto 22.5 % (25-40); Mean Corpuscular Hemoglobin 26.5 PG (26-34); Mean Corpuscular Volume 77.9 fL (80-100); Monocytes Absolute Auto 400 /uL (0-900); Monocytes Percent Auto 4.1 % (3-14); Neutrophils Absolute Auto 6800 /uL (1500-7000); Neutrophils Percent Auto 71.7 % (50-75); Platelet Count 331 X10^3/uL (150-400); Red Blood Cell Count 5.24 X10^6/uL (4.0-5.2); Red Cell Distribution Width 13.7 % (11.6-14.8); White Blood Cell Count 9.5 X10^3/uL (4.5-11.0)
[2023-09-10 08:37] VITALS: BP 143/72; PULSE 69
[2023-09-10] MEDS: NITROGLYCERIN 0.4 MG SL TAB SL (08:37)
[2023-09-10] MEDS: PANTOPRAZOLE 40 MG VIAL IV (08:38)
[2023-09-10 08:42] LABS: Prothrombin Time 11.6 SECONDS (9.4-12.5)
[2023-09-10 08:45] LABS: PTT Partial Thromboplastin Tim 40 SECONDS (25.1-36.5)
[2023-09-10 08:47] LABS: Alanine Aminotransferase 18 IU/L (<35); Albumin 4.6 g/dL (3.5-5.0); Albumin Globulin Ratio 1.4 (1.0-2.8); Alkaline Phosphatase 81 U/L (38-126); Aspartate Aminotransferase 23 IU/L (14-36); BUN Creatinine Ratio 15.1 (6-22); Bilirubin Total 1.1 mg/dL (0.2-1.3); Blood Urea Nitrogen 11 mg/dL (7-17); Calcium 9.3 mg/dL (8.4-10.2); Carbon Dioxide 26 mmol/L (22-32); Chloride 107 mmol/L (98-107); Creatine Kinase 89 U/L (30-135); Estimated Glomerular Filt Rate > 60 mL/min (>60); Globulin 3.3 g/dL (1.7-4.1); Glucose 107 mg/dL (70-100); HEMOLYSIS < 15 (0-50); Lipase 45 U/L (23-300); Magnesium 2.1 mg/dL (1.6-2.3); Potassium 3.9 mmol/L (3.4-5.1); Sodium 140 mmol/L (137-145); Total Protein 7.9 g/dL (6.3-8.2)
[2023-09-10] MEDS: ASPIRIN 81 MG CHEW TAB 324 MG PO (08:52)
[2023-09-10 08:58] LABS: Troponin I < 0.012 ng/mL (0.01-0.034)
[2023-09-10 09:00] LABS: D Dimer 753 ng/ml (<500)
[2023-09-10 09:57] LABS: Bacteria Urine Occasional (0-1); RBC Urine 1-5/HPF (0-5/HPF); Urine Volume 10mL (spun); WBC Urine 1-5/HPF (0-5/HPF)
[2023-09-10 09:58] LABS: Culture Indicated Urine Specimen Cultured; Squamous Epithelial Cell Urine 10-30 /HPF (0-5/HPF)
[2023-09-10 10:13] VITALS: PULSE 59; RESP 12; O2SAT 98
[2023-09-10 10:14] VITALS: BP 125/81; PULSE 61; RESP 18; O2SAT 99
[2023-09-10 10:30] VITALS: BP 132/76; PULSE 63; RESP 15; O2SAT 99
[2023-09-10 11:00] VITALS: BP 137/81; PULSE 58; RESP 15; O2SAT 97
[2023-09-10 11:01] LABS: Troponin I < 0.012 ng/mL (0.01-0.034)
== END 2023-09-10 11:27 | disposition home or self-care (01) ==
PROVIDERS: Emergency Provider Emergency Medicine; Family Provider Physician Assistant; PCP Physician Assistant
DX: R07.89 Other chest pain (principal)
CPT/HCPCS: 36415; 71045; 80053; 81003; 81015; 81025; 82550; 83690; 83735; 84484; 85025; 85379; 85610; 85730; 87077; 87086; 87186; 93005; 96374; 99284; C9113

== ENCOUNTER 2023-09-30 10:42 | Emergency (ER) | payer OTHER, SELFPAY ==
[2023-09-30] VITALS (14 sets, daily range): BP systolic 126–143; BP diastolic 62–82; PULSE 52–69; RESP 13–27; TEMP 36.1–36.7; O2SAT 96–100; BMI 38.7
--- NOTE | 2023-09-30 10:56 | EKG_ITS ---
[address] [address] Test Date: 2023-09-30 Pat Name: Daria Mendosa Department: Room: Gender: Female [employer] Machine Tender: OSWALDO : 1985 Requested By: Order Number: [id number] Reading MD: Frederic Acuña Measurements Intervals [place] Rate: 61 P: 22 MN: 168 QRS: 8 QRSD: 78 T: 8 QT: 388 QTc: 390 Interpretive Statements Normal sinus rhythm Minimal voltage criteria for LVH, may be normal variant ( R in aVL ) Septal infarct , age undetermined Electronically Signed On 10-01-2023 16:16:42 PDT by Frederic Acuña
--- NOTE | 2023-09-30 10:57 | DI.RAD.S_ITS ---
PROCEDURE: XR CHEST 1V INDICATIONS: chest pain TECHNIQUE: One view of the chest was acquired. COMPARISON: [facility], CR, XR CHEST 1V, 09/10/2023, 8:41. FINDINGS: Surgical changes and devices: None. Lungs and pleura: Lungs are clear. No pleural effusions or pneumothorax. Mediastinum: Mediastinal contours appear normal. Heart size is normal. Bones and chest wall: No suspicious bony lesions. Overlying soft tissues appear unremarkable. IMPRESSION: No acute cardiopulmonary abnormality is seen. Dictated by: Jo Camargo MD, PhD on 09/30/2023 at 11:25 Approved by: Jo Camargo MD, PhD on 09/30/2023 at 11:26
[2023-09-30] MEDS: ASPIRIN 81 MG CHEW TAB 324 MG PO (11:09)
[2023-09-30 11:16] LABS: Appearance Urine UA CLEAR; Bilirubin Urine UA NEGATIVE (NEGATIVE); Color Urine UA YELLOW; Glucose Urine UA NEGATIVE (Negative); Ketones Urine UA 1+ (NEGATIVE); Leukocyte Esterase Urine UA 2+ (NEGATIVE); Nitrite Urine UA NEGATIVE (Negative); Occult Blood Urine UA 3+ (Negative); Protein Urine UA NEGATIVE (Negative); Urobilinogen Urine UA 0.2 E.U./dL (0.2)
[2023-09-30 11:27] LABS: Bacteria Urine Moderate (10-30); Culture Indicated Urine Specimen Cultured; RBC Urine 1-5/HPF (0-5/HPF); Squamous Epithelial Cell Urine 1-5 /HPF (0-5/HPF); Urine Volume 10mL (spun); WBC Urine 5-10/HPF (0-5/HPF)
[2023-09-30 11:37] LABS: PTT Partial Thromboplastin Tim 24 SECONDS (25.1-36.5)
[2023-09-30 11:42] LABS: Add Manual Diff / Slide Review NO; Basophils Absolute Auto 0 /uL (0-100); Basophils Percent Auto 0.4 % (0-2); Eosinophils Absolute Auto 100 /uL (0-450); Eosinophils Percent Auto 0.9 % (2-4); Hematocrit 38.7 % (36-46); Lymphocytes Absolute Auto 1900 /uL (1100-4500); Lymphocytes Percent Auto 18.6 % (25-40); Mean Corpuscular HGB Conc 33.5 % (30-36); Mean Corpuscular Hemoglobin 26.7 PG (26-34); Mean Corpuscular Volume 79.7 fL (80-100); Monocytes Absolute Auto 400 /uL (0-900); Monocytes Percent Auto 4.1 % (3-14); Neutrophils Absolute Auto 7900 /uL (1500-7000); Platelet Count 314 X10^3/uL (150-400); Red Blood Cell Count 4.86 X10^6/uL (4.0-5.2); Red Cell Distribution Width 14.2 % (11.6-14.8); White Blood Cell Count 10.3 X10^3/uL (4.5-11.0)
--- NOTE | 2023-09-30 12:15 | ED.CHESTPAIN ---
HPI - Chest Pain General Chief Complaint: Chest Pain Stated Complaint: Chest Pain, Tiredness, Numbness, Abd Pain Time Seen by Provider: 09/30/23 10:59 Source: patient Mode of arrival: Ambulatory Limitations: no limitations History of Present Illness HPI narrative: Patient 38-year-old female history of acid reflex presents today with chest discomfort. She was pushing a cart of 21 chairs when she really sweaty and had significant chest pain. She apparently looks pale thought she might pass out. She did not pass out. She has been having ongoing left flank pain as well. She reports that pain has completely resolved. He was actually seen evaluated here on September 09 by myself. At that time she was here for chest pain as well she was under significant amount of stress. She reports that they drove to [place] for vacation she has been doing better. Her urine from the did girl Shantel martinezii, supposedly prescription was sent or called in but patient says the pharmacy never got it she never picked it up. Denies any fever or chills. No nausea or vomiting. Not really having abdominal pain however when she was evaluated at the clinic someone palpated her abdomen and she has intense pain. She does have significant family history dad of MS at age 42 Related Data Home Medications Medication Instructions Recorded Confirmed ALBUTEROL SULFATE (Ventolin / 2 puff INH Q4H PRN ##0 02/06/07 Proventil) TRIAMCINOLONE NASAL INHALER 2 puff INH ##0 02/06/07 (NASACORT) famotidine 20 mg tablet ##0 12/29/11 hydrocodone 5 mg-acetaminophen 300 ##0 12/29/11 mg tablet (Vicodin) lorazepam 0.5 mg tablet ##0 12/29/11 Previous Rx's Medication Instructions Recorded cephalexin 500 mg capsule 500 mg PO BID #10 caps 09/15/21 ketorolac 10 mg tablet 10 mg PO Q6H PRN pain #14 tabs 09/15/21 ondansetron 4 mg disintegrating 4 mg PO TID-QID PRN nausea and 09/15/21 tablet vomiting #10 tabs pantoprazole 40 mg tablet,delayed 40 mg PO DAILY #30 tabs 09/17/21 release (Protonix) ciprofloxacin HCl 500 mg tablet 500 mg PO BID #20 tabs 08/25/22 meloxicam 7.5 mg tablet 7.5 mg PO BID PRN pain #10 tabs 09/17/22 sulfamethoxazole 800 1 tab PO BID 5 days #10 tabs 09/30/23 mg-trimethoprim 160 mg tablet (Bactrim DS) Allergies Allergy/AdvReac Type Severity Reaction Status Date / Time lidocaine [LIDOCAINE] Allergy Mild Verified 09/30/23 10:58 Patient History Social History Smoking Status: Never smoker Smoking Status: Never smoker tobacco type: cigarettes alcohol intake frequency: holidays/special occasions only Substance Use Type: marijuana Exam Initial Vital Signs Initial Vital Signs: Vital Signs Temperature 98.1 F 09/30/23 10:43 Pulse Rate 60 09/30/23 10:43 Respiratory Rate 15 09/30/23 10:43 Blood Pressure 136/75 09/30/23 10:43 Pulse Oximetry 97 09/30/23 10:43 Oxygen Delivery Method Room Air 09/30/23 10:43 GENERAL: Alert well-appearing 38-year-old female and in no acute distress. HEENT: Head atraumatic,EOMI, pupils reactive, face symmetric, moist mucous membranes CARDIOVASCULAR: Regular rate and rhythm without murmurs, rubs or gallops. RESPIRATORY: Breath sounds equal bilaterally, no wheezes rales or rhonchi. ABDOMEN: Soft, nontender. Normoactive bowel sounds all 4 quadrants. No guarding or rebound. : Minimal left CVA tenderness EXTREMITIES: Normal range of motion, no clubbing or edema. Neurovascularly intact NEUROLOGICAL: Alert and oriented x4.Normal gait and speech. SKIN: Warm, dry, no laceration, no petechiae, no rashes or lesions. Scores HEART Score Heart Score history: Moderately Suspicious Heart Score EKG: Normal Heart Score Age: < 45 years old Heart Score risk factors: 1-2 risk factors Heart Score troponin: < or = to normal limit Heart Score Total: 2 Course Orders Ordered: ED Orders 09/30/23 10:57 XR chest 1V Stat EKG-12 Lead Stat 09/30/23 10:58 Urinalysis and Microscopic Stat Urine Culture Stat 09/30/23 11:15 Complete Blood Count AUTO DIFF Stat D Dimer Stat PTT Partial Thromboplastin Attila Stat Prothrombin Time INR Stat 09/30/23 12:07 Comprehensive Metabolic Panel Stat Lipase Stat Magnesium Stat Troponin & CK Cardiac Panel Stat 09/30/23 13:44 Trop I [Troponin I] Stat Discontinued Medications Aspirin (Aspirin 81 Mg Chew Tab) 324 mg PO NOW ONE Stop: 09/30/23 10:58 Last Admin: 09/30/23 11:09 Dose: 324 mg Documented By: NAS Ketorolac Tromethamine (Ketorolac 30 Mg/Ml Vial) 30 mg IM NOW ONE Stop: 09/30/23 12:20 Last Admin: 09/30/23 12:33 Dose: 30 mg Documented By: ELLA Vital Signs Vital signs: Vital Signs - 8 hr 09/30/23 11:30 09/30/23 11:30 09/30/23 12:00 Temperature Pulse Rate 65 Respiratory Rate 24 Blood Pressure 142/76 H 132/82 Pulse Oximetry 98 09/30/23 12:00 09/30/23 12:30 09/30/23 12:31 Temperature Pulse Rate 57 L 56 L Respiratory Rate 16 13 Blood Pressure 126/77 Pulse Oximetry 98 97 09/30/23 12:31 09/30/23 13:00 09/30/23 13:00 Temperature Pulse Rate 60 60 Respiratory Rate 16 16 Blood Pressure 126/69 Pulse Oximetry 96 99 09/30/23 13:30 09/30/23 13:30 09/30/23 14:00 Temperature Pulse Rate 52 L 58 L Respiratory Rate 14 27 H Blood Pressure 143/69 H Pulse Oximetry 100 98 09/30/23 14:01 09/30/23 14:01 09/30/23 14:48 Temperature 97 F L Pulse Rate 58 L Respiratory Rate 22 Blood Pressure 126/62 Pulse Oximetry 98 MDM - Chest Pain Lab Data 09/30/23 11:15 09/30/23 12:07 Labs: Lab Results 09/30/23 09/30/23 09/30/23 Range/Units 10:58 10:58 10:58 WBC (4.5-11.0) X10^3/uL RBC (4.0-5.2) X10^6/uL Hgb (12.0-16.0) g/dL Hct (36-46) % MCV (80-100) fL MCH (26-34) PG MCHC (30-36) % RDW (11.6-14.8) % Plt Count (150-400) X10^3/uL Neut % (Auto) (50-75) % Lymph % (Auto) (25-40) % [place] % (Auto) (3-14) % Eos % (Auto) (2-4) % Baso % (Auto) (0-2) % Neut # (Auto) (6452-5340) /uL Lymph # (Auto) (8944-9536) /uL [place] # (Auto) (0-900) /uL Eos # (Auto) (0-450) /uL Baso # (Auto) (0-100) /uL PT (9.4-12.5) SECONDS INR (0.9-1.3) APTT (25.1-36.5) SECONDS D-Dimer (<500) ng/ml Sodium (137-145) mmol/L Potassium (3.4-5.1) mmol/L Chloride (98-107) mmol/L Carbon Dioxide (22-32) mmol/L BUN (7-17) mg/dL Creatinine (0.52-1.04) mg/dL Estimated GFR (>60) mL/min BUN/Creatinine Ratio (6-22) Glucose (70-100) mg/dL Calcium (8.4-10.2) mg/dL Magnesium (1.6-2.3) mg/dL Total Bilirubin (0.2-1.3) mg/dL AST (14-36) IU/L ALT (<35) IU/L Alkaline Phosphatase (38-126) U/L Total Creatine Kinase (30-135) U/L Troponin I (0.01-0.034) ng/mL Total Protein (6.3-8.2) g/dL Albumin (3.5-5.0) g/dL Globulin (1.7-4.1) g/dL Albumin/Globulin Ratio (1.0-2.8) Lipase (23-300) U/L Urine Color Yellow Urine Appearance Clear Urine pH 7.0 (4.5-8.0) Ur Specific [place] 1.010 (1.000-1.035) Urine Protein Negative (Negative) Urine Glucose (UA) Negative (Negative) g/dL Urine Ketones 1+ H (NEGATIVE) Urine Occult Blood 3+ H (Negative) Urine Nitrate Negative (Negative) Urine Bilirubin Negative (NEGATIVE) Urine Urobilinogen 0.2 (0.2) E.U./dL Ur Leukocyte Esterase 2+ H (NEGATIVE) Urine RBC 1-5/hpf Cancelled (0-5/HPF) Urine WBC 5-10/hpf H Cancelled (0-5/HPF) Ur Squamous Epith Cells 1-5 /hpf D (0-5/HPF) Ur Transition Epith Cell Ur Renal Epithelial Cell Calcium Oxalate Crystal Uric Acid Crystals Triple Phos Crystals Other Crystals Amorphous Sediment Urine Bacteria (None) Hyaline Casts Granular Casts RBC Casts WBC Casts Other Casts Urine Mucus Urine Trichomonas Urine Yeast Urine Sperm Ur Culture Indicated? Micro UA Comment Vol Urine Centrifuged 09/30/23 09/30/23 09/30/23 Range/Units 10:58 10:58 10:58 WBC (4.5-11.0) X10^3/uL RBC (4.0-5.2) X10^6/uL Hgb (12.0-16.0) g/dL Hct (36-46) % MCV (80-100) fL MCH (26-34) PG MCHC (30-36) % RDW (11.6-14.8) % Plt Count (150-400) X10^3/uL Neut % (Auto) (50-75) % Lymph % (Auto) (25-40) % [place] % (Auto) (3-14) % Eos % (Auto) (2-4) % Baso % (Auto) (0-2) % Neut # (Auto) (3500-3970) /uL Lymph # (Auto) (6691-4697) /uL [place] # (Auto) (0-900) /uL Eos # (Auto) (0-450) /uL Baso # (Auto) (0-100) /uL PT (9.4-12.5) SECONDS INR (0.9-1.3) APTT (25.1-36.5) SECONDS D-Dimer (<500) ng/ml Sodium (137-145) mmol/L Potassium (3.4-5.1) mmol/L Chloride (98-107) mmol/L Carbon Dioxide (22-32) mmol/L BUN (7-17) mg/dL Creatinine (0.52-1.04) mg/dL Estimated GFR (>60) mL/min BUN/Creatinine Ratio (6-22) Glucose (70-100) mg/dL Calcium (8.4-10.2) mg/dL Magnesium (1.6-2.3) mg/dL Total Bilirubin (0.2-1.3) mg/dL AST (14-36) IU/L ALT (<35) IU/L Alkaline Phosphatase (38-126) U/L Total Creatine Kinase (30-135) U/L Troponin I (0.01-0.034) ng/mL Total Protein (6.3-8.2) g/dL Albumin (3.5-5.0) g/dL Globulin (1.7-4.1) g/dL Albumin/Globulin Ratio (1.0-2.8) Lipase (23-300) U/L Urine Color Urine Appearance Urine pH (4.5-8.0) Ur Specific [place] (1.000-1.035) Urine Protein (Negative) Urine Glucose (UA) (Negative) g/dL Urine Ketones (NEGATIVE) Urine Occult Blood (Negative) Urine Nitrate (Negative) Urine Bilirubin (NEGATIVE) Urine Urobilinogen (0.2) E.U./dL Ur Leukocyte Esterase (NEGATIVE) Urine RBC (0-5/HPF) Urine WBC (0-5/HPF) Ur Squamous Epith Cells Cancelled (0-5/HPF) Ur Transition Epith Cell Cancelled Ur Renal Epithelial Cell Cancelled Calcium Oxalate Crystal Cancelled Uric Acid Crystals Cancelled Triple Phos Crystals Cancelled Other Crystals Cancelled Amorphous Sediment Cancelled Urine Bacteria Moderate (10-30) H Cancelled (None) Hyaline Casts Cancelled Granular Casts Cancelled RBC Casts Cancelled WBC Casts Cancelled Other Casts Cancelled Urine Mucus Cancelled Urine Trichomonas Cancelled Urine Yeast Cancelled Urine Sperm Cancelled Ur Culture Indicated? Specimen cultured Cancelled Micro UA Comment Cancelled Vol Urine Centrifuged 10ml (spun) 09/30/23 09/30/23 09/30/23 Range/Units 10:58 11:15 12:07 WBC 10.3 (4.5-11.0) X10^3/uL RBC 4.86 (4.0-5.2) X10^6/uL Hgb 13.0 (12.0-16.0) g/dL Hct 38.7 (36-46) % MCV 79.7 L (80-100) fL MCH 26.7 (26-34) PG MCHC 33.5 (30-36) % RDW 14.2 (11.6-14.8) % Plt Count 314 (150-400) X10^3/uL Neut % (Auto) 76.0 H (50-75) % Lymph % (Auto) 18.6 L (25-40) % [place] % (Auto) 4.1 (3-14) % Eos % (Auto) 0.9 L (2-4) % Baso % (Auto) 0.4 (0-2) % Neut # (Auto) 7900 H (0319-4319) /uL Lymph # (Auto) 1900 (6392-9602) /uL [place] # (Auto) 400 (0-900) /uL Eos # (Auto) 100 (0-450) /uL Baso # (Auto) 0 (0-100) /uL PT 12.0 (9.4-12.5) SECONDS INR 1.0 (0.9-1.3) APTT 24 L (25.1-36.5) SECONDS D-Dimer 525 H (<500) ng/ml Sodium 137 (137-145) mmol/L Potassium 4.8 (3.4-5.1) mmol/L Chloride 106 (98-107) mmol/L Carbon Dioxide 28 (22-32) mmol/L BUN 10 (7-17) mg/dL Creatinine 0.77 (0.52-1.04) mg/dL Estimated GFR > 60 (>60) mL/min BUN/Creatinine Ratio 13.0 (6-22) Glucose 100 (70-100) mg/dL Calcium 9.0 (8.4-10.2) mg/dL Magnesium 2.1 (1.6-2.3) mg/dL Total Bilirubin 0.9 (0.2-1.3) mg/dL AST 20 (14-36) IU/L ALT 15 (<35) IU/L Alkaline Phosphatase 64 (38-126) U/L Total Creatine Kinase 69 (30-135) U/L Troponin I < 0.012 (0.01-0.034) ng/mL Total Protein 7.0 (6.3-8.2) g/dL Albumin 4.1 (3.5-5.0) g/dL Globulin 2.9 (1.7-4.1) g/dL Albumin/Globulin Ratio 1.4 (1.0-2.8) Lipase 40 (23-300) U/L Urine Color Urine Appearance Urine pH (4.5-8.0) Ur Specific [place] (1.000-1.035) Urine Protein (Negative) Urine Glucose (UA) (Negative) g/dL Urine Ketones (NEGATIVE) Urine Occult Blood (Negative) Urine Nitrate (Negative) Urine Bilirubin (NEGATIVE) Urine Urobilinogen (0.2) E.U./dL Ur Leukocyte Esterase (NEGATIVE) Urine RBC (0-5/HPF) Urine WBC (0-5/HPF) Ur Squamous Epith Cells (0-5/HPF) Ur Transition Epith Cell Ur Renal Epithelial Cell Calcium Oxalate Crystal Uric Acid Crystals Triple Phos Crystals Other Crystals Amorphous Sediment Urine Bacteria (None) Hyaline Casts Granular Casts RBC Casts WBC Casts Other Casts Urine Mucus Urine Trichomonas Urine Yeast Urine Sperm Ur Culture Indicated? Micro UA Comment Vol Urine Centrifuged Cancelled 09/30/23 Range/Units 13:44 WBC (4.5-11.0) X10^3/uL RBC (4.0-5.2) X10^6/uL Hgb (12.0-16.0) g/dL Hct (36-46) % MCV (80-100) fL MCH (26-34) PG MCHC (30-36) % RDW (11.6-14.8) % Plt Count (150-400) X10^3/uL Neut % (Auto) (50-75) % Lymph % (Auto) (25-40) % [place] % (Auto) (3-14) % Eos % (Auto) (2-4) % Baso % (Auto) (0-2) % Neut # (Auto) (4973-4487) /uL Lymph # (Auto) (9604-4742) /uL [place] # (Auto) (0-900) /uL Eos # (Auto) (0-450) /uL Baso # (Auto) (0-100) /uL PT (9.4-12.5) SECONDS INR (0.9-1.3) APTT (25.1-36.5) SECONDS D-Dimer (<500) ng/ml Sodium (137-145) mmol/L Potassium (3.4-5.1) mmol/L Chloride (98-107) mmol/L Carbon Dioxide (22-32) mmol/L BUN (7-17) mg/dL Creatinine (0.52-1.04) mg/dL Estimated GFR (>60) mL/min BUN/Creatinine Ratio (6-22) Glucose (70-100) mg/dL Calcium (8.4-10.2) mg/dL Magnesium (1.6-2.3) mg/dL Total Bilirubin (0.2-1.3) mg/dL AST (14-36) IU/L ALT (<35) IU/L Alkaline Phosphatase (38-126) U/L Total Creatine Kinase (30-135) U/L Troponin I < 0.012 (0.01-0.034) ng/mL Total Protein (6.3-8.2) g/dL Albumin (3.5-5.0) g/dL Globulin (1.7-4.1) g/dL Albumin/Globulin Ratio (1.0-2.8) Lipase (23-300) U/L Urine Color Urine Appearance Urine pH (4.5-8.0) Ur Specific [place] (1.000-1.035) Urine Protein (Negative) Urine Glucose (UA) (Negative) g/dL Urine Ketones (NEGATIVE) Urine Occult Blood (Negative) Urine Nitrate (Negative) Urine Bilirubin (NEGATIVE) Urine Urobilinogen (0.2) E.U./dL Ur Leukocyte Esterase (NEGATIVE) Urine RBC (0-5/HPF) Urine WBC (0-5/HPF) Ur Squamous Epith Cells (0-5/HPF) Ur Transition Epith Cell Ur Renal Epithelial Cell Calcium Oxalate Crystal Uric Acid Crystals Triple Phos Crystals Other Crystals Amorphous Sediment Urine Bacteria (None) Hyaline Casts Granular Casts RBC Casts WBC Casts Other Casts Urine Mucus Urine Trichomonas Urine Yeast Urine Sperm Ur Culture Indicated? Micro UA Comment Vol Urine Centrifuged Point of Care Testing Test Results Negative Urine Dip Bedside Urine Glucose Negative Bedside Urine Bilirubin - Negative Bedside Urine Ketone +/- 5 Urine Specific [place] 1.010 Bedside Urine Occult Blood +++ Bedside Urine pH 7.0 Bedside Urine Protein - Negative Bedside Urine Urobilinogen - Negative Bedside Urine Nitrite - Negative Bedside Urine Leukocytes ++ 125 Esterase Imaging Data Chest x-ray: Radiologist's Impression: PROCEDURE: XR CHEST 1V INDICATIONS: chest pain TECHNIQUE: One view of the chest was acquired. COMPARISON: [facility], CR, XR CHEST 1V, 09/10/2023, 8:41. FINDINGS: Surgical changes and devices: None. Lungs and pleura: Lungs are clear. No pleural effusions or pneumothorax. Mediastinum: Mediastinal contours appear normal. Heart size is normal. Bones and chest wall: No suspicious bony lesions. Overlying soft tissues appear unremarkable. IMPRESSION: No acute cardiopulmonary abnormality is seen. Dictated by: Jo Camargo MD, PhD on 09/30/2023 at 11:25 ECG Data Attestation: I personally reviewed and interpreted this ECG as follows: MDM Narrative Medical decision making narrative: Patient 38-year-old female presenting today with chest pain heavy chairs. She got very sweaty and diaphoretic. She does have a known UTI she was not treated for but no evidence of sepsis today. She previously had cardiac workup about 1 year ago at [facility] but continues to have some chest pain. She is chest pain-free here in the ED. Blood work has been reviewed she is 2- troponins no leukocytosis, D-dimer is 525 which is less than previously at 753 Chest x-ray reviewed no acute cardiopulmonary process EKG reviewed similar to previous EKGs Heart score 2 Patient presents today with chest tightness and diaphoresis while pushing heavy chairs. She does have a low risk heart score I have seen evaluated her previously for the same. She does have a father who at age 42 from an MS. I did discuss with hospitalist Dr. Buck about admission for stress test for ongoing chest pain. He reports that heart score is low and she can still follow-up outpatient. Discussed with her at length strongly encourage her to get a stress test. She actually thinks 1 is ordered from her previous ED visit but has not yet been scheduled. She understands that she can return to the ED at any time and that she needs further evaluation and workup. She is given Bactrim for her UTI. She has no evidence of sepsis today. She is afebrile with normal blood pressure and leukocytosis of 10. Pulmonary embolism was considered but year score rules out PE her D-dimer has actually decreased from previously as well. She has not hypoxic or tachycardic YEARS Algorithm for Pulmonary Embolism (PE) from [email or web address] on 09/30/2023 All calculations should be rechecked by clinician prior to use RESULT SUMMARY: PE excluded YEARS algorithm rules out PE (0.43% with symptomatic VTE during 3-month follow-up) INPUTS: patient ?> 0 = No Clinical signs of DVT ?> 0 = No Hemoptysis ?> 0 = No PE most likely diagnosis ?> 0 = No D-dimer >=,000 ng/mL ?> 0 = No Discharge Plan Departure Patient Disposition: Home Clinical Impression: Atypical chest pain, UTI (urinary tract infection) Instructions: DI for Atypical Chest Pain Activity Restrictions/Additional Instructions: *You have been diagnosed with atypical chest, UTI *What to do: Please talk to your primary care provider about a stress test and echocardiogram. You need to have this done. *Continue to take medications as directed *Follow up with your primary care provider in 2-3 days or call [phone] *Return to ER if you should have chest pain shortness of breath [or] any new, worsening or concerning symptoms Prescriptions: New sulfamethoxazole-trimethoprim [Bactrim DS] 800-160 mg tablet 1 tab PO BID 5 Days Qty: 10 0RF No Action ALBUTEROL SULFATE (Ventolin / Proventil) 2 puff INH Q4H PRN Qty: 0 TRIAMCINOLONE NASAL INHALER (NASACORT) 2 puff INH Qty: 0 lorazepam 0.5 MG tablet Qty: 0 hydrocodone-acetaminophen [Vicodin] 5 MG/300 MG tablet Qty: 0 famotidine 20 MG tablet Qty: 0 pantoprazole [Protonix] 40 mg tablet,delayed release (DR/EC) 40 mg PO DAILY Qty: 30 0RF ketorolac 10 mg tablet 10 mg PO Q6H PRN (Reason: pain) Qty: 14 0RF cephalexin 500 mg capsule 500 mg PO BID Qty: 10 0RF ondansetron 4 mg tablet,disintegrating 4 mg PO TID-QID PRN (Reason: nausea and vomiting) Qty: 10 0RF ciprofloxacin HCl 500 mg tablet 500 mg PO BID Qty: 20 0RF meloxicam 7.5 mg tablet 7.5 mg PO BID PRN (Reason: pain) Qty: 10 0RF Referrals: Jesus Alberto Art PA-C [Primary Care Provider] - Stand Alone Forms: Patient Portal/API
[2023-09-30] MEDS: KETOROLAC 30 MG/ML VIAL IM (12:33)
[2023-09-30 12:34] LABS: D Dimer 525 ng/ml (<500)
[2023-09-30 12:34] LABS: Alanine Aminotransferase 15 IU/L (<35); Albumin 4.1 g/dL (3.5-5.0); Albumin Globulin Ratio 1.4 (1.0-2.8); Alkaline Phosphatase 64 U/L (38-126); Aspartate Aminotransferase 20 IU/L (14-36); Bilirubin Total 0.9 mg/dL (0.2-1.3); Blood Urea Nitrogen 10 mg/dL (7-17); Carbon Dioxide 28 mmol/L (22-32); Chloride 106 mmol/L (98-107); Creatine Kinase 69 U/L (30-135); Estimated Glomerular Filt Rate > 60 mL/min (>60); Globulin 2.9 g/dL (1.7-4.1); Glucose 100 mg/dL (70-100); HEMOLYSIS 25 (0-50); Lipase 40 U/L (23-300); Magnesium 2.1 mg/dL (1.6-2.3); Potassium 4.8 mmol/L (3.4-5.1); Sodium 137 mmol/L (137-145)
[2023-09-30 12:45] LABS: Troponin I < 0.012 ng/mL (0.01-0.034)
[2023-09-30 14:11] LABS: Troponin I < 0.012 ng/mL (0.01-0.034)
--- NOTE | 2023-09-30 14:39 | PM.CALLCOV.1 ---
Call Coverage Note Note Date of Patient Contact: 09/30/23 Narrative of Care Provided: 38 year old female with recurrent chest pain presenting to the ER. Patient is low risk by HEART scoring. Had stress testing 1 year ago. Troponins are negative. She is safe to discharge home, no indication for further risk stratification of chest pain.
== END 2023-09-30 14:49 | disposition home or self-care (01) ==
PROVIDERS: Emergency Provider Emergency Medicine; Family Provider Physician Assistant; PCP Physician Assistant
DX: R07.89 Other chest pain (principal); N39.0 Urinary tract infection, site not specified
CPT/HCPCS: 36415; 71045; 80053; 81001; 81003; 81025; 82550; 83690; 83735; 84484; 85025; 85379; 85610; 85730; 87077; 87086; 87186; 93005; 96372; 99284; J1885

== ENCOUNTER → 2023-10-18 07:41 | Outpatient (CLI) | payer OTHER, SELFPAY ==
--- NOTE | 2023-10-18 22:50 | DI.NM.S_ITS ---
DATE OF SERVICE: 10/18/2023 PROCEDURE: Exercise stress test. INDICATIONS: Chest pain. CARDIAC STRESS: The patient underwent exercise stress test under the supervision of an attending staff using standard [facility] protocol. She exercised for about 6 minutes and 22 seconds, achieved maximum heart rate of 163 which was 91% of target heart rate. Normal blood pressure response. Resting blood pressure 118/80 and peak blood pressure 172/88 mmHg. Baseline rhythm was sinus. During exercise, patient has artifact; however, in immediate recovery, no obvious ischemic changes seen. No significant arrhythmias seen. The patient had atypical chest pressure at baseline, which was on a scale of 1 to 10, 2 in intensity, which the patient has been experiencing from the last 3 years. She continued to have similar chest discomfort during exercise and in recovery, which was unchanged. She also had shortness of breath. CONCLUSION: Exercise stress test did not reveal any obvious inducible ischemic changes. Normal hemodynamic response. Poor exercise tolerance. No significant arrhythmias. Atypical chest pain to begin with, which did not get worse with exercise. No obvious ischemic changes during stress test or in recovery. Slightly prolonged recovery. Overall, low-risk exercise stress test. Daria Mendosa - ANNE/brady/DONYA doc#: [id number]/job#: [id number] dd: 10/18/2023 16:46:00 dt: 10/18/2023 22:24:00 DICTATING /COPIES TO: Luisito Funes MD COPIES MNE: HOLLIE;
== END ==
PROVIDERS: Family Provider Physician Assistant; PCP Family Medicine; Referring Provider Family Medicine; Visit Provider Family Medicine
DX: R07.89 Other chest pain (principal)
CPT/HCPCS: 93017

== ENCOUNTER → 2023-10-26 06:43 | Outpatient (CLI) | payer OTHER, SELFPAY ==
--- NOTE | 2023-10-26 06:44 | DI.ECHO.S_ITS ---
[place] [facility]---------+ [facility] : : [id number] : [place] : : [id number] : : Phone: [phone] Echocardiogram Report + + :Name: DIMITRIS DONALDSON Study Date: 10/26/2023 Height: 70 in : :Hospital ReadingLocation: Weight: 260 lb : : Gender: Female BSA: 2.3 m2 : :: 1985 Age: 38 yrs BP: 132/100 mmHg: :Reason For Study: CHEST PAIN : :Ordering Physician: TRICIA, : :ANITRA Performed By: Delores Stark : :Referring: ANITRA CLARKE : + + Interpretation Summary 1) Normal left ventricular thickness, size, wall motion, and systolic function (EF 55-60%). 2) Normal right ventricular size and function. 3) No significant valvular abnormalities. 4) Compared to the Echo done 09/26/2022, no significant change. Procedure: A two-dimensional transthoracic echocardiogram with color flow and Doppler was performed. The study quality was technically adequate. Comparison is made with the echocardiogram of 09/26/2022. The patient was in sinus rhythm with heart rates between 62-75 bpm during the exam. Left Ventricle: The left ventricle is normal in size and wall thickness. The ejection fraction is estimated to be 55-60%. Left ventricular systolic function appears normal without focal wall motion abnormalities. Diastolic parameters suggest a relaxation abnormality of the left ventricle, consistent with probable normal filling pressures. Right Ventricle: The right ventricle is normal in size and function. Atria: The left atrial size is normal. Right atrial size is normal. There is no Doppler evidence for an interatrial shunt. Mitral Valve: The mitral valve is normal in structure and function. There is trace mitral regurgitation. Aortic Valve: The aortic valve is trileaflet. The aortic valve opens well. There is no aortic valve stenosis. There is trace aortic regurgitation. Tricuspid Valve: The tricuspid valve is normal in structure and function. There is trace tricuspid regurgitation. The right ventricular systolic pressure is estimated to be at least 23 mmHg based on an estimated right atrial pressure of 3 mm Hg. Pulmonic Valve: The pulmonic valve leaflets are thin and pliable; valve motion is normal. There is trace pulmonic regurgitation. Great Vessels: The aortic root is normal size. The dimensions of the ascending aorta are normal. The IVC is of normal diameter and collapses greater than 50% with a sniff. This suggests a low right atrial pressure of 3 mm Hg. Pericardium/ Pleura There is no pericardial effusion. There is no pleural effusion. MMode/2D Measurements & Calculations LVIDd: 5.4 cm LVOT diam: 2.1 cm LVIDs: 3.5 cm Ao root diam: 3.2 cm FS: 34.9 % asc Aorta Diam: 3.3 cm IVSd: 0.89 cm Ao Arch Diam (Prox Trans): 2.6 cm LVPWd: 0.76 cm LV rocha. diameter/BSA (cm/m^2): 2.3 LV sys. diameter/BSA (cm/m^2): 1.5 LA A2 area: 17.7 cm2 RA long axis: 4.8 cm LA A4 area: 18.3 cm2 RA area: 13.6 cm2 LA length (vol): 5.4 cm RA vol: 32.4 ml LA vol: 50.7 ml RA : 13.9 ml/m2 LA vol index: 21.7 ml/m2 IVC diam: 1.4 cm RVD1 (basal): 3.6 cm RVD2 (mid): 3.4 cm TAPSE: 2.5 cm Doppler Measurements & Calculations Ao V2 max: 164.3 cm/sec LVOT Max Sam: 81.0 cm/sec Ao V2 mean: 105.9 cm/sec LV V1 max P.6 mmHg Ao max P.8 mmHg LV V1 VTI: 19.8 cm Ao mean P.2 mmHg IRIS(I,D): 2.3 cm2 Ao V2 VTI: 30.6 cm IRIS(V,D): 1.8 cm2 sev ratio: 0.65 IRIS indexed to BSA (cm^2/m^2): 1.0 MV E max sam: 75.6 cm/sec TR max sam: 223.3 cm/sec MV A max sam: 82.2 cm/sec TR max P.9 mmHg MV E/A: 0.92 PA V2 max: 122.6 cm/sec Med Peak E' Sam: 8.4 cm/sec PA V2 mean: 84.5 cm/sec E/E' med: 9.0 PA mean P.2 mmHg Lat Peak E' Sam: 11.8 cm/sec PA pr(Accel): 8.8 mmHg E/E' lat: 6.4 E/e' average: 7.7 MV dec time: 0.24 sec SV(LVOT): 71.9 ml Reading Physician:09:16 AM
== END ==
PROVIDERS: Family Provider Physician Assistant; PCP Family Medicine; Referring Provider Family Medicine; Visit Provider Family Medicine
DX: R07.89 Other chest pain (principal)
CPT/HCPCS: 93306

== ENCOUNTER → 2023-10-29 10:01 | Outpatient (CLI) | payer OTHER, SELFPAY ==
--- NOTE | 2023-10-29 10:02 | DI.RAD.S_ITS ---
PROCEDURE: XR SHOULDER LT MIN 2V INDICATIONS: Pain in left shoulder TECHNIQUE: 3 views of the shoulder were acquired. COMPARISON: None. FINDINGS: Bones: No fractures or dislocations. Mild acromioclavicular joint osteoarthritic changes are seen with joint space narrowing and small downward osteophyte formation. No suspicious bony lesions. Visualized ribs appear intact. Soft tissues: No suspicious soft tissue calcifications. IMPRESSION: Mild left acromioclavicular joint osteoarthritis. No fracture or dislocation. No gross soft tissue abnormalities. Dictated by: Humza Yost M.D. on 10/29/2023 at 12:11 Approved by: Humza Yost M.D. on 10/29/2023 at 12:11
== END ==
PROVIDERS: Family Provider Physician Assistant; PCP Family Medicine; Referring Provider Family Medicine; Visit Provider Family Medicine
DX: M19.012 Primary osteoarthritis, left shoulder (principal); M25.512 Pain in left shoulder
CPT/HCPCS: 73030

== ENCOUNTER → 2023-11-30 11:39 | Outpatient (CLI) | payer OTHER, SELFPAY ==
--- NOTE | 2023-11-30 12:27 | DI.CT.S_ITS ---
PROCEDURE: CT ABDOMEN W CON INDICATIONS: RLQ ABD PAIN TECHNIQUE: After the administration of intravenous contrast, 5 mm thick sections acquired from the diaphragms to the iliac crests. 5 mm thick coronal and sagittal reformats were acquired. For radiation dose reduction, the following was used: automated exposure control, adjustment of mA and/or kV according to patient size. COMPARISON: None. FINDINGS: Image quality: Diagnostic. Lower Chest: No significant findings. ABDOMEN: Liver: No solid mass. Gallbladder: Prior cholecystectomy. Biliary ducts: No biliary dilation. Pancreas: No ductal dilation. Spleen: Size is within normal limits. Adrenal Glands: No adrenal nodules. Kidneys and Ureters: No hydronephrosis. No solid mass. No complex renal cystic lesion which requires follow up. Stomach and Bowel: Normal colonic caliber, without significant wall thickening. Peritoneum: No abnormal intraperitoneal fluid. No free air. Ventral Wall: No hernia. Abdominal Nodes: No retroperitoneal or mesenteric adenopathy by size criteria. Vessels: Aorta and inferior vena cava are normal in size. Bones: No aggressive osseous abnormality. IMPRESSION: 1. Prior cholecystectomy. 2. Please note that this study was ordered as a CT abdomen with contrast. A source of epigastric pain is not found. However, only a small portion of the pelvis is included on this abdominal CT and the area of the appendix and remainder of the pelvis is not evaluated. Dictated by: Mirza Treadwell M.D. on 12/01/2023 at 11:06 Approved by: Mirza Treadwell M.D. on 12/01/2023 at 11:10
== END ==
LOC: CT 11:40
PROVIDERS: Family Provider Physician Assistant; PCP Family Medicine; Referring Provider Family Medicine; Visit Provider Family Medicine
DX: R10.31 Right lower quadrant pain (principal); Z90.49 Acquired absence of other specified parts of digestive tract
CPT/HCPCS: 74160; Q9967

== ENCOUNTER 2024-04-03 21:49 | Emergency (ER) | payer OTHER, SELFPAY ==
[2024-04-03 21:53] VITALS: BP 171/85; PULSE 79; RESP 16; TEMP 36.6; O2SAT 96; BMI 36.9
--- NOTE | 2024-04-03 22:02 | EKG_ITS ---
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
--- NOTE | 2024-04-03 22:13 | DI.RAD.S_ITS ---
PROCEDURE: XR CHEST 1V INDICATIONS: chest pain TECHNIQUE: One view of the chest was acquired. COMPARISON: [facility], CR, XR CHEST 1V, 09/30/2023, 11:00. FINDINGS: Surgical changes and devices: None. Lungs and pleura: Lungs are clear. No pleural effusions or pneumothorax. Mediastinum: Mediastinal contours appear normal. Heart size is normal. Bones and chest wall: No suspicious bony lesions. Overlying soft tissues appear unremarkable. IMPRESSION: No acute pulmonary process. Dictated by: Anitha Meza M.D. on 04/03/2024 at 23:06 Approved by: Anitha Meza M.D. on 04/03/2024 at 23:07
--- NOTE | 2024-04-03 22:17 | PC.NURSE ---
21g butterfly needle for lab draw right AC without complications.
[2024-04-03 22:26] LABS: Add Manual Diff / Slide Review NO; Basophils Absolute Auto 100 /uL (0-100); Basophils Percent Auto 0.8 % (0-2); Eosinophils Absolute Auto 100 /uL (0-450); Eosinophils Percent Auto 0.6 % (2-4); Hematocrit 39.6 % (36-46); Lymphocytes Absolute Auto 2700 /uL (1100-4500); Lymphocytes Percent Auto 21.1 % (25-40); Mean Corpuscular HGB Conc 32.9 % (30-36); Mean Corpuscular Hemoglobin 26.7 PG (26-34); Mean Corpuscular Volume 80.9 fL (80-100); Monocytes Absolute Auto 700 /uL (0-900); Monocytes Percent Auto 5.6 % (3-14); Neutrophils Absolute Auto 9100 /uL (1500-7000); Neutrophils Percent Auto 71.9 % (50-75); Platelet Count 347 X10^3/uL (150-400); Red Blood Cell Count 4.89 X10^6/uL (4.0-5.2); Red Cell Distribution Width 13.8 % (11.6-14.8); White Blood Cell Count 12.7 X10^3/uL (4.5-11.0)
[2024-04-03 22:34] LABS: Alanine Aminotransferase 16 IU/L (<35); Albumin Globulin Ratio 1.3 (1.0-2.8); Alkaline Phosphatase 60 U/L (38-126); Aspartate Aminotransferase 20 IU/L (14-36); BUN Creatinine Ratio 20.5 (6-22); Bilirubin Total 0.6 mg/dL (0.2-1.3); Blood Urea Nitrogen 16 mg/dL (7-17); Calcium 8.9 mg/dL (8.4-10.2); Carbon Dioxide 26 mmol/L (22-32); Chloride 106 mmol/L (98-107); Creatine Kinase 42 U/L (30-135); Estimated Glomerular Filt Rate > 60 mL/min (>60); Globulin 3.1 g/dL (1.7-4.1); Glucose 101 mg/dL (70-100); HEMOLYSIS < 15 (0-50); Lipase 52 U/L (23-300); Sodium 135 mmol/L (137-145); Total Protein 7.1 g/dL (6.3-8.2)
[2024-04-03 22:46] LABS: Troponin I < 0.012 ng/mL (0.01-0.034)
[2024-04-03 23:49] VITALS: BP 142/89; PULSE 66; RESP 15; O2SAT 100
[2024-04-04] VITALS: BP 128/82; PULSE 64; RESP 16; O2SAT 100
--- NOTE | 2024-04-04 00:11 | ED_ITS ---
HPI - Chest Pain General Chief Complaint: Chest Pain Stated Complaint: chest px and tightness Time Seen by Provider: 04/04/24 00:10 Source: patient Mode of arrival: Ambulatory History of Present Illness HPI narrative: Patient 39-year-old female chest discomfort. She reports that she has had off and on she has been seen in the ED this year for a couple of times. She was getting ready to take her special needs daughter to [employer]. She is also tear finally flying. Tonight she was packing when she got some chest discomfort. Really reproducible with pain. She also reports constant jaw pain which has been going on for weeks. Should she is supposed to get mouth guard but she has been fitted for yet. She feels like her cheeks just constantly hurt. Does not necessarily feel like her chest and jaw pain are related. She is lost 50 lb with diet change after her daughter got diagnosed with diabetes they made some changes in the household. No significant shortness of breath. Last time she was here in the ED in September she was right before she was traveling as well. She has actually had a stress test in October which was negative Related Data Home Medications Medication Instructions Recorded Confirmed ALBUTEROL SULFATE (Ventolin / 2 puff INH Q4H PRN ##0 02/06/07 Proventil) TRIAMCINOLONE NASAL INHALER 2 puff INH ##0 02/06/07 (NASACORT) famotidine 20 mg tablet ##0 12/29/11 hydrocodone 5 mg-acetaminophen 300 ##0 12/29/11 mg tablet (Vicodin) lorazepam 0.5 mg tablet ##0 12/29/11 Previous Rx's Medication Instructions Recorded cephalexin 500 mg capsule 500 mg PO BID #10 caps 09/15/21 ketorolac 10 mg tablet 10 mg PO Q6H PRN pain #14 tabs 09/15/21 ondansetron 4 mg disintegrating 4 mg PO TID-QID PRN nausea and 09/15/21 tablet vomiting #10 tabs pantoprazole 40 mg tablet,delayed 40 mg PO DAILY #30 tabs 09/17/21 release (Protonix) ciprofloxacin HCl 500 mg tablet 500 mg PO BID #20 tabs 08/25/22 meloxicam 7.5 mg tablet 7.5 mg PO BID PRN pain #10 tabs 09/17/22 Allergies Allergy/AdvReac Type Severity Reaction Status Date / Time lidocaine [LIDOCAINE] Allergy Mild Verified 09/30/23 10:58 Patient History Social History Smoking Status: Never smoker Smoking Status: Never smoker tobacco type: cigarettes alcohol intake frequency: holidays/special occasions only Exam Initial Vital Signs Initial Vital Signs: Vital Signs Temperature 97.8 F 04/03/24 21:53 Pulse Rate 79 04/03/24 21:53 Respiratory Rate 16 04/03/24 21:53 Blood Pressure 171/85 H 04/03/24 21:53 Pulse Oximetry 96 04/03/24 21:53 Oxygen Delivery Method Room Air 04/03/24 21:53 GENERAL: Alert pleasant 39-year-old female and in no acute distress. HEENT: Head atraumatic,EOMI, pupils reactive, face symmetric, moist mucous membranes CARDIOVASCULAR: Regular rate and rhythm without murmurs, rubs or gallops. Reproducible RESPIRATORY: Breath sounds equal bilaterally, no wheezes rales or rhonchi. ABDOMEN: Soft, nontender. Normoactive bowel sounds all 4 quadrants. No guarding or rebound. EXTREMITIES: Normal range of motion, no clubbing or edema. Neurovascularly intact NEUROLOGICAL: Alert and oriented x4.Normal gait and speech. SKIN: Warm, dry, no laceration, no petechiae, no rashes or lesions. Scores HEART Score Heart Score history: Slightly Suspicious Heart Score EKG: Normal Heart Score Age: < 45 years old Heart Score risk factors: 1-2 risk factors Heart Score troponin: < or = to normal limit Heart Score Total: 1 Course Orders Ordered: ED Orders 04/03/24 21:58 EKG-12 Lead Stat 04/03/24 22:12 Complete Blood Count AUTO DIFF Stat Comprehensive Metabolic Panel Stat Lipase Stat Troponin & CK Cardiac Panel Stat 04/03/24 22:13 XR chest 1V Stat Discontinued Medications Ketorolac Tromethamine (Ketorolac 30 Mg/Ml Vial) 15 mg IV NOW ONE Stop: 04/04/24 00:34 Last Admin: 04/04/24 00:52 Dose: Not Given Documented By: JOSE Ketorolac Tromethamine (Ketorolac 30 Mg/Ml Vial) 15 mg IM NOW ONE Stop: 04/04/24 00:54 Last Admin: 04/04/24 00:59 Dose: 15 mg Documented By: LS Vital Signs Vital signs: Vital Signs - 8 hr 04/03/24 21:53 04/03/24 23:49 04/03/24 23:49 Temperature 97.8 F Pulse Rate 79 66 Respiratory Rate 16 15 Blood Pressure 171/85 H 142/89 H Pulse Oximetry 96 100 Oxygen Delivery Method Room Air Room Air 04/04/24 00:00 04/04/24 00:00 04/04/24 00:30 Temperature Pulse Rate 64 63 Respiratory Rate 16 17 Blood Pressure 128/82 Pulse Oximetry 100 100 Oxygen Delivery Method Room Air 04/04/24 00:30 04/04/24 01:00 04/04/24 01:00 Temperature Pulse Rate 60 Respiratory Rate 18 Blood Pressure 127/79 141/76 H Pulse Oximetry 100 Oxygen Delivery Method Room Air MDM - Chest Pain Lab Data 04/03/24 22:12 04/03/24 22:12 Labs: Lab Results 04/03/24 Range/Units 22:12 WBC 12.7 H (4.5-11.0) X10^3/uL RBC 4.89 (4.0-5.2) X10^6/uL Hgb 13.0 (12.0-16.0) g/dL Hct 39.6 (36-46) % MCV 80.9 (80-100) fL MCH 26.7 (26-34) PG MCHC 32.9 (30-36) % RDW 13.8 (11.6-14.8) % Plt Count 347 (150-400) X10^3/uL Neut % (Auto) 71.9 (50-75) % Lymph % (Auto) 21.1 L (25-40) % [place] % (Auto) 5.6 (3-14) % Eos % (Auto) 0.6 L (2-4) % Baso % (Auto) 0.8 (0-2) % Neut # (Auto) 9100 H (3504-5632) /uL Lymph # (Auto) 2700 (0606-3481) /uL [place] # (Auto) 700 (0-900) /uL Eos # (Auto) 100 (0-450) /uL Baso # (Auto) 100 (0-100) /uL Sodium 135 L (137-145) mmol/L Potassium 4.0 (3.4-5.1) mmol/L Chloride 106 (98-107) mmol/L Carbon Dioxide 26 (22-32) mmol/L BUN 16 (7-17) mg/dL Creatinine 0.78 (0.52-1.04) mg/dL Estimated GFR > 60 (>60) mL/min BUN/Creatinine Ratio 20.5 (6-22) Glucose 101 H (70-100) mg/dL Calcium 8.9 (8.4-10.2) mg/dL Total Bilirubin 0.6 (0.2-1.3) mg/dL AST 20 (14-36) IU/L ALT 16 (<35) IU/L Alkaline Phosphatase 60 (38-126) U/L Total Creatine Kinase 42 (30-135) U/L Troponin I < 0.012 (0.01-0.034) ng/mL Total Protein 7.1 (6.3-8.2) g/dL Albumin 4.0 (3.5-5.0) g/dL Globulin 3.1 (1.7-4.1) g/dL Albumin/Globulin Ratio 1.3 (1.0-2.8) Lipase 52 (23-300) U/L Imaging Data Chest x-ray: Radiologist's Impression: PROCEDURE: XR CHEST 1V INDICATIONS: chest pain TECHNIQUE: One view of the chest was acquired. COMPARISON: [facility], , XR CHEST 1V, 09/30/2023, 11:00. FINDINGS: Surgical changes and devices: None. Lungs and pleura: Lungs are clear. No pleural effusions or pneumothorax. Mediastinum: Mediastinal contours appear normal. Heart size is normal. Bones and chest wall: No suspicious bony lesions. Overlying soft tissues appear unremarkable. IMPRESSION: No acute pulmonary process. Dictated by: Anitha Meza M.D. on 04/03/2024 at 23:06 ECG Data Attestation: I personally reviewed and interpreted this ECG as follows: Prior ECG tracings: available for review Interpretation: Sinus rhythm rate 71 IA interval 150 QRS 76 QTC 402 persistent T-wave inversion noted in lead 3 similar to previous EKGs no ST changes MDM Narrative Medical decision making narrative: Patient 39-year-old female presenting today with chest pain and jaw pain. She had cardiac evaluation less than 6 months ago she had a stress test which was negative. She was quite anxious has a lot of stress in life. It seems to be that traveling causes her more stress and anxiety she would some chest pain. Today blood work has been reviewed and overall reassuring. She has a negative troponin electrolytes are stable. EKG has been reviewed it does not show any ischemic changes Chest x-ray has been reviewed no abnormality She was given some Toradol for some aches and pains At this time I think pain is related to stress. Discussed this with her. She does have family history or her dad had [place] at age 42. She was a low risk heart score At this time do think her pain is not cardiac. Her jaw pain is constant she is supposed to get a mouth guard I think it is unrelated to the chest pain. Started having chest pain packing. Stress test a few months ago negative blood work ED is overall reassuring EKGs does not show any ischemic changes discuss this with her. She was given Toradol here in the ED to come help with some discomfort. Discharge Plan Departure Patient Disposition: Home Clinical Impression: Chest pain Instructions: DI for Atypical Chest Pain Activity Restrictions/Additional Instructions: *You have been diagnosed with atypical chest pain *What to do: At this time I do think that you have some chest pain due to stress. Stress test from October was negative. Continue on your weight loss journey good job. *Continue to take medications as directed *Follow up with your primary care provider in 2-3 days or call [phone] *Return to ER if you should have increasing chest pain shortness of breath or any new, worsening or concerning symptoms Prescriptions: No Action ALBUTEROL SULFATE (Ventolin / Proventil) 2 puff INH Q4H PRN Qty: 0 TRIAMCINOLONE NASAL INHALER (NASACORT) 2 puff INH Qty: 0 lorazepam 0.5 MG tablet Qty: 0 hydrocodone-acetaminophen [Vicodin] 5 MG/300 MG tablet Qty: 0 famotidine 20 MG tablet Qty: 0 pantoprazole [Protonix] 40 mg tablet,delayed release (DR/EC) 40 mg PO DAILY Qty: 30 0RF ketorolac 10 mg tablet 10 mg PO Q6H PRN (Reason: pain) Qty: 14 0RF cephalexin 500 mg capsule 500 mg PO BID Qty: 10 0RF ondansetron 4 mg tablet,disintegrating 4 mg PO TID-QID PRN (Reason: nausea and vomiting) Qty: 10 0RF ciprofloxacin HCl 500 mg tablet 500 mg PO BID Qty: 20 0RF meloxicam 7.5 mg tablet 7.5 mg PO BID PRN (Reason: pain) Qty: 10 0RF Referrals: Saadia Arroyo MD [Primary Care Provider] - Stand Alone Forms: Patient Portal/API/Survey
[2024-04-04 00:30] VITALS: BP 127/79; PULSE 63; RESP 17; O2SAT 100
[2024-04-04] MEDS: KETOROLAC 30 MG/ML VIAL 15 MG IM (00:59)
[2024-04-04 01:00] VITALS: BP 141/76; PULSE 60; RESP 18; O2SAT 100
== END 2024-04-04 01:23 | disposition home or self-care (01) ==
PROVIDERS: Emergency Provider Emergency Medicine; Family Provider Physician Assistant; PCP Family Medicine
DX: R07.89 Other chest pain (principal)
CPT/HCPCS: 71045; 80053; 82550; 83690; 84484; 85025; 93005; 96372; 99283; 99284; J1885

== ENCOUNTER → 2024-10-20 10:15 | Outpatient (CLI) | payer OTHER, SELFPAY ==
--- NOTE | 2024-10-20 10:20 | DI.RAD.S_ITS ---
PROCEDURE: XR HIP W PEL IF DONE LT 2V INDICATIONS: LT HIP PAIN TECHNIQUE: AP pelvis with lateral view(s) of the left hip(s). COMPARISON: None. FINDINGS: Bones: No fractures or dislocations. Mild osteoarthritic degenerative change of the left hip includes joint space narrowing, marginal osteophytosis and acetabular subchondral sclerosis. Pelvic ring appears intact. No suspicious bony lesions. Soft tissues: The visualized bowel gas pattern is normal. No suspicious soft tissue calcifications. Intrauterine device. IMPRESSION: Mild degenerative change of the left hip without evidence of acute bony abnormality. Dictated by: Todd Carnes M.D. on 10/22/2024 at 17:45 Approved by: Todd Carnes M.D. on 10/22/2024 at 17:46
== END ==
PROVIDERS: Family Provider Physician Assistant; PCP Family Medicine; Referring Provider Chiropractor; Visit Provider Chiropractor
DX: M25.552 Pain in left hip (principal)
CPT/HCPCS: 73502